=== PATIENT | female | born 1950 | race Caucasian/White ===

== ENCOUNTER 2017-07-14 15:50 | Emergency (ER) | payer MEDICARE, OTHER ==
[~2017-07-14] VITALS: Ht 157.5 cm; Wt 99.8 kg
[~2017-07-14 15:50] MED LIST: ACETAMINOPHEN325 M1 PO; ACETAMINOPHEN325 MG RC; ACETAMINOPHEN650 M1 PO; ACIDOPHILUS1 EACH PO; ADVIL PM CAPLE1 EACH PO; ALBUTEROL0.63 MG/3 NEB; ALPRAZOLAM0.25 MG PO; ALPRAZOLAM1 MG PO; ARANESP60 MCG/1 M SC; ASPIR 8181 MG PO; BACLOFEN10 MG PO; BENADRYL25 M1 PO; BENADRYL25 MG PO; BREO INH; BUSPIRONE HCL15 MG PO; BUSPIRONE HCL5 MG PO; CELEXA20 MG PO; CIPRO500 MG PO; CITALOPRAM HBR20 MG PO; CLEOCIN HCL150 MG PO; CLINDAMYCIN HC150 MG IV; CYCLOBENZAPRINE5 MG PO; CYMBALTA20 MG PO; DILT-CD120 MG PO; DOCUSATE SODIU100 MG PO; DOLOPHINE HCL5 MG PO; DUONEB 0.5 MG-33 ML INH; ETHYL CHLORI103.5 ML; FUROSEMIDE20 MG PO; FUROSEMIDE80 MG PO; GABAPENTIN300 MG PO; GEODON20 M1 IM; GEODON20 MG PO; HUMALOG100 UNITS/; HYDRALAZINE HCL10 MG PO; HYDROCHLOROTHIA25 MG PO; HYDROXYZINE HCL25 MG PO; IMIPRAMINE HCL25 MG PO; LAMOTRIGINE100 MG PO; LEXAPRO10 MG PO; LISINOPRIL20 MG PO; MECLIZINE HCL12.5 MG PO; MECLIZINE HCL25 MG PO; METHADONE HCL10 MG PO; METHYLIN5 M1 PO; METHYLPHENIDATE5 MG PO; METOLAZONE5 MG PO; METOPROLOL TART50 MG PO; MICROZIDE12.5 MG PO; MORPHINE S30 MG/30 M IVP; NORCO 5-325 TA1 EACH PO; NORVASC10 MG PO; NYSTATIN1 EAC1 TOP; NYSTATIN100000 UNI; ONDANSETRON HCL4 MG PO; ONDANSETRON2 MG/1 ML IV; OS-CAL 500+D T1 EACH PO; PAXIL40 MG PO; PHENERGAN25 MG/1 M1 IM; PHENYTOIN125 MG/5 M PO; PIPERACIL-TAZ2.25 G1; POTASSIUM CHLOR8 MEQ PO; PRAVACHOL20 MG PO; PRAVACHOL40 MG PO; PRAVASTATIN SOD40 MG PO; PRILOSEC20 MG PO; REGLAN10 MG PO; REGLAN5 MG PO; RENA-VITE TABL0.8 MG PO; RENVELA800 MG PO; ROCEPHIN1 GM IV; SIMVASTATIN20 MG PO; TOFRANIL25 MG PO; TYLENOL325 MG PO; ULTRAM 50MG50 MG PO; ULTRAM50 MG PO; VANCOMYCIN HCL1 GM IV; VICODIN ES TAB1 EACH PO; XANAX0.5 MG PO; Z.0.AMARYL2 MG PO; Z.0.AMBIEN CR12.5 MG PO; Z.0.GABAPENTIN100 MG PO; Z.0.XANAX0.25 MG PO; ZOFRAN ODT4 MG PO; ZOFRAN4 MG PO; ZOLPIDEM TART12.5 MG; [UNRECOGNIZED DRUG - OTHER] PO; [UNRECOGNIZED DRUG - OTHER] PO; [UNRECOGNIZED DRUG - OTHER] PO
[2017-07-14] MEDS ORDERED: HYDROMORPHONE 2MG/ML INJ IM ONE (17:15)
[2017-07-14 17:42] LABS: BASOPHILS % 0.3 % (0.0-1.0); EOSINOPHILS # (AUTO) 0.3 (0.0-0.4); EOSINOPHILS % 3.4 % (0.0-6.0); HEMATOCRIT 31.7 % (34.2-44.1); HEMOGLOBIN 9.9 g/dL (12.0-16.0); LYMPHOCYTES # (AUTO) 0.9 (1.0-3.2); LYMPHOCYTES % 9.8 % (18.0-39.1); MEAN CORPUSCULAR HEMOGLOBIN 29.3 pg (28-32); MEAN CORPUSCULAR HGB CONC 31.2 g/dL (31-35); MEAN CORPUSCULAR VOLUME 93.8 fL (81-99); MONOCYTES # (AUTO) 0.6 (0.2-0.8); MONOCYTES % 6.7 % (4.4-11.3); NEUTROPHILS # (AUTO) 7.3 (2.1-6.9); NEUTROPHILS % 79.1 % (38.7-80.0); PLATELET COUNT 201 x10e3/uL (140-360); RED BLOOD COUNT 3.38 x10e6/uL (3.6-5.1)
[2017-07-14 17:52] LABS: INR 0.92; PARTIAL THROMBOPLASTIN TIME 36.5 seconds (23.8-35.5); PROTHROMBIN TIME 12.8 seconds (11.9-14.5)
[2017-07-14 18:01] LABS: ALBUMIN 3.2 g/dL (3.5-5.0); ALBUMIN/GLOBULIN RATIO 0.7 (0.8-2.0); ANION GAP 18.4 mmol/L (8-16); CALCIUM 9.1 mg/dL (8.4-10.2); CREATININE, SERUM 3.16 mg/dL (0.57-1.11); POTASSIUM 4.4 mmol/L (3.5-5.1)
[2017-07-14 18:03] LABS: CREATINE KINASE MB 2.6 ng/mL (0.00-5.00); TROPONIN I 0.017 ng/mL (0-0.300)
--- NOTE | 2017-07-14 18:25 | Diagnostic Imaging Report ---
PROCEDURE:X-RAY PELVIS, AP VIEW COMPARISON:Lumbar spine x-rays 12/15/16 INDICATIONS:FALL FINDINGS: The bones are diffusely demineralized. Intramedullary gudelia and pin in the proximal right femur transfix an intertrochanteric fracture to near-anatomic alignment. There is some callus formation surrounding the fracture margins suggestive of healing. The visualized portion of the hardware is intact. No femoral head dislocation. A fracture of the right superior pubic ramus is suspected. There is no surrounding callus formation. There is no diastases the pubic symphysis or sacroiliac joints. A treated compression fracture of L3 is stable. Visualized portion of the left hip is unremarkable. CONCLUSION: ORIF of right femur fracture. Suspected acute fracture of the right pubic symphysis. This may be acute or chronic. Stable treated compression fracture of L3. Dictated by: Narendra Johnston M.D. on 07/14/2017 at 18:33 Electronically approved by: Narendra Johnston M.D. on 07/14/2017 at 18:33
--- NOTE | 2017-07-14 18:27 | Diagnostic Imaging Report ---
PROCEDURE:FEMUR ONE VIEW LEFT COMPARISON:Pelvis x-rays performed at the same time. INDICATIONS:FALL FINDINGS: Single AP view obtained. The entire femur was not imaged. The bones are diffusely demineralized. No fracture dislocation on this single image. There are no vascular calcifications. IMPRESSION: No fracture or dislocation on this single image. Dictated by: Narendra Johnston M.D. on 07/14/2017 at 18:35 Electronically approved by: Narendra Johnston M.D. on 07/14/2017 at 18:35
--- NOTE | 2017-07-14 18:34 | Diagnostic Imaging Report ---
PROCEDURE:X-RAY LEFT LOWER LEG COMPARISON:Knee x-rays 04/02/16. INDICATIONS:FALL FINDINGS: The bones are diffuse demineralized. There are two bone fragments adjacent to the lateral femoral condyle. The largest is well-corticated and measures 16 cm in length. There appears to be a donor site from the femoral condyle. The margins are somewhat well-corticated suggestive of chronicity. The remainder of the distal femur is intact. The tibia and fibula are intact. The visualized portions of the calcaneus and talus are intact. The subtalar joint is patent. There are mild degenerative changes of the medial, lateral, and patella femoral compartments. The patella is normally situated. There is no joint effusion. There is soft tissue swelling of the proximal lower extremity. A soft tissue nodule anterior to the proximal tibial metaphysis measures 4.8 x 8.0 cm. No radiopaque foreign bodies in the soft tissues. CONCLUSION: 1. Avulsion fracture from the lateral femoral condyle appears chronic. Please correlate with area of pain. 2. No acute fracture or dislocation. 3. Tricompartment osteoarthritis. 4. Soft tissue mass, likely a hematoma, in the anterior proximal lower extremity. Dictated by: Narendra Johnston M.D. on 07/14/2017 at 18:42 Electronically approved by: Narendra Johnston M.D. on 07/14/2017 at 18:42
[2017-07-14] MEDS ORDERED: HYDROMORPHONE 2MG/ML INJ IV ONE ×3 (18:45→22:15)
== END 2017-07-14 23:00 | disposition home or self-care (01) ==
LOC: ER 15:50
DX: M79.605 Pain in left leg (principal); M79.604 Pain in right leg; M25.462 Effusion, left knee; S80.02XA Contusion of left knee, initial encounter; S80.12XA Contusion of left lower leg, initial encounter; S32.501A Unspecified fracture of right pubis, initial encounter for closed fracture; I12.0 Hypertensive chronic kidney disease with stage 5 chronic kidney disease or end stage renal disease; N18.6 End stage renal disease; Z99.2 Dependence on renal dialysis; I48.91 Unspecified atrial fibrillation; I50.9 Heart failure, unspecified; F17.210 Nicotine dependence, cigarettes, uncomplicated
CPT/HCPCS: 29530; 36415; 72170; 73551; 73590; 80053; 82550; 82553; 83880; 84484; 85025; 85610; 85730; 86850; 86900; 99284; J1170

== ENCOUNTER 2018-05-04 19:00 | Emergency (ER) | payer MEDICARE ==
[~2018-05-04] VITALS: Ht 170.2 cm; Wt 73.9 kg
[~2018-05-04 19:00] MED LIST changes: +FUROSEMIDE40 MG PO; +PANTOPRAZOLE SO40 MG PO; +RENAGEL800 MG PO; +SERTRALINE HCL50 MG PO
--- OUTSIDE RECORDS SUMMARY | 2018-05-04 19:03 | XMS REPORT | Clinical Summary ---
Author Author PHILOMENA [facility] Address Unknown Phone Unavailable Care Team Providers Care Quill Winder Name Role Phone PCP Unavailable Allergies Comments Active Allergy Reactions Severity Noted Date Codeine Swelling 04/02/2016 Medications End Date Status Medication Sig Dispensed Refills Start Date Active albuterol (PROVENTIL) 2.5 0 mg /3 mL (0.083 %) 6 nebulizer solution Active ALPRAZolam (XANAX XR) 0.5 0 MG 24 hr tablet 6 Active amLODIPine (NORVASC) 10 0 MG tablet 6 Active busPIRone (BUSPAR) 15 MG 0 tablet 6 Active citalopram (CELEXA) 20 MG 0 tablet 6 Active ethyl chloride 100 % 0 spray 6 Active furosemide (LASIX) 80 MG 0 tablet 6 Active gabapentin (NEURONTIN) 0 600 MG tablet 6 Active dicyclomine (BENTYL) 10 0 MG capsule 6 Active methadone (DOLOPHINE) 10 0 MG tablet 6 Active lidocaine-prilocaine 0 (EMLA) 2.5-2.5 % cream 6 Active metolazone (ZAROXOLYN) 5 0 MG tablet 6 Active metoprolol (LOPRESSOR) 50 0 MG tablet 6 Active pantoprazole (PROTONIX) 0 40 MG tablet 6 Active PARoxetine (PAXIL) 40 MG 0 tablet 6 Active GAVILYTE-G 236-22.74-6.74 0 -5.86 gram solution 6 Active RENVELA 800 mg tablet 0 6 Active traMADol (ULTRAM) 50 mg Take 1 tablet 30 tablet 0 tablet (50 mg total) 6 by mouth every 6 (six) hours as needed for Pain. Max Daily Amount: 200 mg Active Problems Problem Noted Date Leg hematoma 04/03/2016 Leg hematoma, left, initial encounter 04/02/2016 COPD (chronic obstructive pulmonary disease) 04/02/2016 Overview: intermittent home O2 CHF (congestive heart failure) 04/02/2016 ESRD (end stage renal disease) 04/02/2016 Overview: M,W,F Social History Date Tobacco Use Types Packs/Day Years Used Light Tobacco Smoker Cigarettes 0.25 50 Sex Assigned at Date Recorded Not on file Industry Job Start Date Occupation Not on file Not on file Not on file Travel End Travel History Travel Start No recent travel history available. Last Filed Vital Signs Not on file Plan of Treatment Not on file Implants Device Identifier Shelf Expiration Date Model / Serial / Lot Implanted Type Area Manufactur er 12/31/2017 [id number] / [id number] / [id number] Grft Taurus Mrtrstm 1000mg [id number] - Tissue Left: Leg [employer] [id number] Graft/Subs Implanted: Qty: 1 on 04/12/2016 by Sreekanth De La O MD 12/31/2017 [id number] / [id number] / [id number] Grft Taurus Mrtrstm 1000mg [id number] - Tissue Left: Leg [employer] [id number] Graft/Subs Implanted: Qty: 1 on 04/12/2016 by Sreekanth De La O MD 10/01/2017 [id number] / [id number] / [id number] Drsng Matristem Meshed [id number] Tissue Left: Leg [employer] [id number] - [id number] Graft/Subs Implanted: Qty: 1 on 04/12/2016 by Sreekanth De La O MD Results Not on fileafter 05/03/2017 Insurance Payer Benefit Subscriber ID Type Phone Address Plan / Group MEDICARE MEDICARE A xxxxxxxxxx Medicare B [facility] [place] xxxxxxxxx [facility] Advance Directives For more information, please contact: [facility] [address] [place] [address] Date Inactivated Comments Code Status Date Activated 04/13/2016 7:49 PM Full Code 04/03/2016 12:26 PM This code status was determined by: Patient 04/03/2016 12:26 PM Full Code 04/03/2016 12:34 AM This code status was determined by: Patient
--- OUTSIDE RECORDS SUMMARY | 2018-05-04 19:03 | XMS REPORT | Continuity of Care Document ---
Author Author [facility] Address Unknown Phone Unavailable Problems Problem Status Onset Date Classification Date Reported Comments Source WEDGE COMPRESSION FRACTURE LUMBAR VERTEB Active 09/17/2016 [facility] Chronic headaches Resolved Problem 09/26/2016 [facility] Obesity Active Problem 09/26/2016 [facility] WEDGE COMPRESSION FRACTURE OF UNSP LUMBA Active [facility] Medications Medication Details Route Status Patient Instructions Ordering Provider Order Date Source Allergies, Adverse Reactions, Alerts Substance Category Reaction Severity Reaction type Status Date Reported Comments Source Adhesive Tape Assertion Tears skin <not entered> Drug allergy Active [facility] codeine Assertion 35 years ago it made my lips swell, itching <not entered> Drug allergy Active [facility] Immunizations Immunization Date Given Site Status Last Updated Comments Source Results Order Name Results Value Reference Range Date Interpretation Comments Source Spine lumbar wo contrast CT Spine lumbar wo contrast CT Spine lumbar wo contrast CT CLINICAL HX: CHECK UP FOR COMPRESSION FX. - CT DLP: 751 MGY-CM; COMPARISON: Lumbar spine series 08/16/2007 TECHNIQUE: Contiguous transaxial 2.5 mm images were obtained through the lumbar spine. Images were reformatted in sagittal and coronal projections. FINDINGS: BONES: There is extensive generalized osteopenia limiting the overall evaluation. There is mild compression deformity of the superior aspect of T11 vertebral body suggesting a subacute to chronic fracture. Probable old compression deformity L1 level with decrease in vertebral body height anteriorly by approximately 70%. Moderate compression deformity of L3 vertebral body stabilized by bony cement. Mild relatively uniform loss of vertebral body height at L4 level. Moderate loss of vertebral body height at L5 level. Acuity versus chronicity of these fractures is difficult to assess. DISC SPACES: There is vacuum phenomenon in the disc spaces at T12-L1 level, L3- L4, L4-L5 and L5-S1 levels. Combination of diffuse disc bulge, spondylosis and ligamentous hypertrophy and facet arthrosis results in moderate central canal stenosis at L3-L4 and moderate to severe central canal stenosis at L4-L5 level. Mild central canal stenosis is present at L2-L3 and L5-S1 levels. There is mild to moderate foraminal stenosis throughout the mid to lower lumbar spine. SOFT TISSUES: Probable renal cyst, upper pole of left kidney. Extensive atherosclerotic disease is present in the abdominal aorta and proximal iliacs. No evidence for AAA. IMPRESSION: Multiple compression deformities are present in the lower thoracic and throughout the lumbar region as discussed above. Decrease in vertebral body height is most pronounced at L1 level. Possible subacute fracture at T11 vertebral body. However, acuity versus chronicity of these fractures is difficult to definitively assess without any prior more recent imaging available for comparison. Further evaluation either with bone scan or MRI of lumbar spine is recommended. Degenerative disc disease, facet arthrosis, and ligamentous hypertrophy is present in the mid to lower lumbar spine resulting in moderate central canal stenosis at L3-L4 level and moderate to severe central canal stenosis at L4-L5 level. This can also be evaluated in greater detail on the MRI study. SL: [id number] 09/23/2016 - - Read by: Bear Lambert MD Dictated Date/time: 09/23/16 16:29 Electronically Signed by: Bear Lambert MD 09/23/16 16:46 FINAL REPORT [facility] Vital Signs Vital Sign Value Date Comments Source Encounters Location Location Details Encounter Type Encounter Number Reason For Visit Attending Provider ADM Date DC Date Status Source Outpatient [id number] [facility] 08/31/2016 Active [facility] Outpatient [id number] [facility] 09/14/2016 Active [facility] Outpatient [id number] [facility] 09/23/2016 09/24/2016 [facility] Procedures Procedure Code Date Perfomer Comments Source Excision of gallbladder [id number] [facility] Knee joint operation [id number] [facility]
--- NOTE | 2018-05-04 20:27 | Diagnostic Imaging Report ---
Examination: CT head without contrast Clinical Indication: Head injury. Technique: Transaxial noncontrast images from the skull base through the vertex were obtained. Sagittal and coronal reformatted images were done. Dose modulation, iterative reconstruction, and/or weight based adjustment of the mA/kV was utilized to reduce the radiation dose to as low as reasonably achievable. Comparison: 12/15/[address] Findings: Scalp: No abnormalities. Bones: Intact. No fractures. No blastic or lytic lesions. Brain sulci: Appropriate for patient's age. Ventricles: Normal in size and configuration. No hydrocephalus. . Extra-axial space: No abnormalities. Parenchyma: Again demonstrated are mild confluent areas of hypoattenuation in the periventricular and subcortical and pontine white matter, nonspecific. No masses, hemorrhage, or acute or chronic cortical based vascular insults. Suprasellar region: No abnormalities. Craniocervical junction: The foramen magnum is patent. No Chiari one malformation. Incidental findings: Atherosclerotic calcification of the cavernous and supraclinoid internal carotid arteries. Impression: 1. No new or acute intracranial finding when compared to prior head CT dated 12/15/2016. 2. Unchanged mild chronic microvascular ischemic change. Signed by: Dr. Letty Lozano M.D. on 05/04/2018 8:23 PM
--- NOTE | 2018-05-04 20:30 | Diagnostic Imaging Report ---
Examination: CT CERVICAL SPINE WITHOUT CONTRAST HISTORY:Neck pain and injury after fall. COMPARISON:None. TECHNIQUE: Multidetector helical axial images were obtained without contrast from the foramen magnum to T1. Coronal and sagittal reformatted images were done. Bone and soft tissue windows were evaluated. Dose modulation, iterative reconstruction, and/or weight based adjustment of the mA/kV was utilized to reduce the radiation dose to as low as reasonably achievable. FINDINGS: Alignment:Normal alignment and lordosis. Vertebrae: Normal height with decrease bone mineralization. No acute fracture, infection or neoplasm. Disc space heights: Normal height. Caliber of spinal canal: Developmentally normal. Posterior fossa and craniocervical junction: Foramen magnum patent. No Chiari 1 malformation. Soft tissues: Atherosclerotic calcification of the bilateral carotid bifurcations. Degenerative changes: Mild bilateral facet arthropathy of the C5-C6 and C6-C7 levels. No disc bulge/ herniation or foraminal or canal stenosis. IMPRESSION: No acute abnormalities. Signed by: Dr. Letty Lozano M.D. on 05/04/2018 8:27 PM
--- NOTE | 2018-05-04 20:33 | Diagnostic Imaging Report ---
Examination: Single AP view of the chest. COMPARISON: AP chest 12/14/2017 INDICATION: Status post fall DISCUSSION: Lines/tubes: None. Lungs: The lungs are well inflated. Stable 1.0 cm calcified granuloma projecting in the right costophrenic region. Stable mild prominence of the interstitial markings bilaterally. There is no evidence of consolidation or pulmonary edema. Pleura: There is no pleural effusion or pneumothorax. Heart and mediastinum: Stable enlargement of the cardiac silhouette. Pulmonary vasculature is normal. Bones and soft tissues: Acute, mildly displaced fracture of the distal right clavicular diaphysis, with inferior displacement of the distal fracture fragment. Generalized osteopenia. Degenerative changes in the thoracic spine. IMPRESSION: 1. Acute, mildly displaced fracture of the distal right clavicular diaphysis, with inferior displacement of the distal fracture fragment. Signed by: Dr. Sean Cardenas M.D. on 05/04/2018 8:30 PM
[2018-05-04] MEDS ORDERED: ALBUTEROL/IPRATROPIUM 3 ML NEB NEB STA (20:34)
--- NOTE | 2018-05-04 20:35 | Diagnostic Imaging Report ---
EXAMINATION: Right shoulder series. CLINICAL HISTORY: Status post fall/trauma. COMPARISON: Chest 1 view 02/13/2018. Discussion: Generalized osteopenia. Acute, mildly displaced fracture of the right clavicular distal diaphysis, with inferior displacement of the distal fracture fragment. No osteolytic or osteoblastic lesions. There is no evidence of a.c. separation. The glenohumeral joint is grossly unremarkable. The soft tissues are normal. IMPRESSION: 1. Acute, mildly displaced fracture of the right clavicular distal diaphysis, with inferior displacement of the distal fracture fragment. Signed by: Dr. Sean Cardenas M.D. on 05/04/2018 8:31 PM
[2018-05-04] MEDS ORDERED: ULTRAM50 MG PO (21:25)
[2018-05-04 23:14] VITALS: BP 160/118
[2018-05-05] MEDS ORDERED: LIDOCAINE 5% PATCH TP SCH (09:00)
== END 2018-05-04 23:39 | disposition home or self-care (01) ==
LOC: ER 19:00
DX: S42.031A Displaced fracture of lateral end of right clavicle, initial encounter for closed fracture (principal); W01.0XXA Fall on same level from slipping, tripping and stumbling without subsequent striking against object, initial encounter; Y93.01 Activity, walking, marching and hiking; Y92.019 Unspecified place in single-family (private) house as the place of occurrence of the external cause; Z88.5 Allergy status to narcotic agent; F17.210 Nicotine dependence, cigarettes, uncomplicated
CPT/HCPCS: 70450; 71045; 72125; 94640; 99283

== ENCOUNTER 2018-06-23 10:55 | Observation (INO) | payer MEDICARE ==
[~2018-06-23] VITALS: Ht 170.2 cm; Wt 78.5 kg
--- OUTSIDE RECORDS SUMMARY | 2018-06-23 10:58 | XMS REPORT | Clinical Summary ---
Author Author PHILOMENA [facility] Address Unknown Phone Unavailable Care Team Providers Care Pneumatic Drum Sander Name Role Phone PCP Unavailable Allergies Comments [...] Lot Implanted Type Area Manufactur er 12/31/2017 [id number] / [id number] / [id number] Grft Taurus Mrtrstm 1000mg [id number] - Tissue Left: Leg [employer] [id number] Graft/Subs Implanted: Qty: 1 on 04/12/2016 by Sreekanth De La O MD 12/31/2017 [id number] / [id number] / [id number] Grft Taurus Mrtrstm 1000mg [id number] - Tissue Left: Leg [employer] [id number] Graft/Subs Implanted: Qty: 1 on 04/12/2016 by Sreekanth De La O MD 10/01/2017 [id number] / [id number] / [id number] Drsng Matristem Meshed [id number] Tissue Left: Leg [employer] [id number] - [id number] Graft/Subs Implanted: Qty: 1 on 04/12/2016 by Sreekanth De La O MD Results Not on fileafter 06/22/2017 Insurance Payer Benefit Subscriber ID Type Phone Address Plan / Group MEDICARE MEDICARE A xxxxxxxxxx Medicare B [facility] [place] xxxxxxxxx [facility] Advance Directives For more information, please contact: [facility] [address] [place] [address] Date Inactivated Comments Code Status Date Activated 04/13/2016 7:49 PM Full Code 04/03/2016 12:26 PM This code status was determined by: Patient 04/03/2016 12:26 PM Full Code 04/03/2016 12:34 AM This code status was determined by: Patient
[2018-06-23] MEDS ORDERED: ALBUTEROL SULF 0.083% NEB SOLN 3 ML NEB NEB STA (11:34)
[2018-06-23] MEDS ORDERED: IPRATROPIUM BROMIDE 0.02% 2.5 ML NEB NEB STA (11:34)
[2018-06-23 11:59] LABS: BASOPHILS % 0.6 % (0.0-1.0); EOSINOPHILS % 0.6 % (0.0-6.0); HEMATOCRIT 34.4 % (34.2-44.1); HEMOGLOBIN 11.4 g/dL (12.0-16.0); LYMPHOCYTES # (AUTO) 0.5 (1.0-3.2); LYMPHOCYTES % 9.4 % (18.0-39.1); MEAN CORPUSCULAR HEMOGLOBIN 31.6 pg (28-32); MEAN CORPUSCULAR HGB CONC 33.1 g/dL (31-35); MEAN CORPUSCULAR VOLUME 95.3 fL (81-99); MONOCYTES # (AUTO) 0.5 (0.2-0.8); MONOCYTES % 8.3 % (4.4-11.3); NEUTROPHILS # (AUTO) 4.4 (2.1-6.9); NEUTROPHILS % 80.7 % (38.7-80.0); PLATELET COUNT 112 x10e3/uL (140-360); RED BLOOD COUNT 3.61 x10e6/uL (3.6-5.1); RED CELL DISTRIBUTION WIDTH 13.4 % (11.7-14.4)
[2018-06-23] MEDS ORDERED: AZITHROMYCIN 500MG/NS 250 ML 250 ML IV ONE (12:00)
[2018-06-23 12:03] LABS: INR 0.95; PROTHROMBIN TIME 13.6 seconds (11.9-14.5)
[2018-06-23 12:04] LABS: PARTIAL THROMBOPLASTIN TIME 38.5 seconds (23.8-35.5)
[2018-06-23 12:13] LABS: ALBUMIN 3.4 g/dL (3.5-5.0); ALBUMIN/GLOBULIN RATIO 0.9 (0.8-2.0); ANION GAP 17.1 mmol/L (8-16); CALCIUM 8.9 mg/dL (8.4-10.2); CREATININE, SERUM 3.95 mg/dL (0.57-1.11); MAGNESIUM 2.1 MG/DL (1.3-2.1); POTASSIUM 5.1 mmol/L (3.5-5.1)
[2018-06-23 12:19] LABS: CREATINE KINASE MB 5.2 ng/mL (0-5.0)
[2018-06-23 12:27] LABS: B-TYPE NATRIURETIC PEPTIDE2 220.3 pg/mL (0-100)
[2018-06-23] MEDS ORDERED: CEFTRIAXONE SOD 1 GM VIAL IM ONE (12:30)
--- NOTE | 2018-06-23 12:36 | Diagnostic Imaging Report ---
EXAMINATION: CHEST 2 VIEWS INDICATION: ^ORDER PLACED BY ^[id number] ^1220 ^Y COMPARISON: 05/04/2018 FINDINGS: PA and lateral views TUBES and LINES: None. LUNGS: Limited by body habitus. Central vascular congestion and suspected mild interstitial edema. Unchanged right basilar nodular density. PLEURA: No pleural effusion or pneumothorax. HEART AND MEDIASTINUM: The cardiac silhouette is enlarged. BONES AND SOFT TISSUES: No acute osseous lesion. Multilevel degenerative changes of thoracic spine with exaggerated kyphosis and generalized demineralization. Soft tissues are unremarkable. UPPER ABDOMEN: No free air under the diaphragm. IMPRESSION: Central vascular congestion and suspected mild interstitial edema. Stable right basilar nodular density, likely a calcified granuloma. Signed by: Dr. Mckay Valentin MD on 06/23/2018 12:33 PM
[2018-06-23 12:55] LABS: CLARITY,URINE CLEAR (CLEAR); COLOR,URINE YELLOW (YELLOW)
[2018-06-23 12:56] LABS: BACTERIA,URINE RARE /HPF; BILIRUBIN,URINE NEGATIVE (NEGATIVE); EPITHELIAL CELLS,URINE RARE /LPF; KETONES,URINE NEGATIVE (NEGATIVE); LEUKOCYTE ESTERASE ,URINE NEGATIVE (NEGATIVE); NITRITE,URINE NEGATIVE (NEGATIVE); PROTEIN,URINE DIPSTICK NEGATIVE (NEGATIVE); URINE UROBILINOGEN 0.2 mg/dL (0.2 - 1)
[2018-06-23] MEDS ORDERED: CEFTRIAXONE SOD 1 GM/NS 50 ML 50 ML IV ONE (13:00)
[2018-06-23] MEDS ORDERED: CEFTRIAXONE SOD 1 GM VIAL IV ONE (13:00)
[2018-06-23] MEDS ORDERED: ONDANSETRON HCL INJ 2 MG/ML VIAL IV STA (13:12)
[2018-06-23] MEDS ORDERED: SODIUM CHLORIDE FLUSH 10 ML SYR INJ PRN (14:15)
[2018-06-23] MEDS ORDERED: METHYLPREDNISOLONE SOD SUCC 125 MG/2ML VIAL IV NR (14:30)
--- OUTSIDE RECORDS SUMMARY | 2018-06-23 15:10 | XMS REPORT | Clinical Summary ---
Author Author PHILOMENA [facility] Address Unknown Phone Unavailable Care Team Providers Care Gas Or Water Meter Installer Name Role Phone PCP Unavailable Allergies Comments [...] Lot Implanted Type Area Manufactur er 12/31/2017 [id number] / [id number] / [id number] Grft Taurus Mrtrstm 1000mg [id number] - Tissue Left: Leg [employer] [id number] Graft/Subs Implanted: Qty: 1 on 04/12/2016 by Sreekanth De La O MD 12/31/2017 [id number] / [id number] / [id number] Grft Taurus Mrtrstm 1000mg [id number] - Tissue Left: Leg [employer] [id number] Graft/Subs Implanted: Qty: 1 on 04/12/2016 by Sreekanth De La O MD 10/01/2017 [id number] / [id number] / [id number] Drsng Matristem Meshed [id number] Tissue Left: Leg [employer] [id number] - [id number] Graft/Subs Implanted: Qty: 1 on 04/12/2016 by Sreekanth De La O MD Results Not on fileafter 06/22/2017 Insurance Payer Benefit Subscriber ID Type Phone Address Plan / Group MEDICARE MEDICARE A xxxxxxxxxx Medicare B [facility] [place] xxxxxxxxx [facility] Advance Directives For more information, please contact: [facility] [address] [place] [address] Date Inactivated Comments Code Status Date Activated 04/13/2016 7:49 PM Full Code 04/03/2016 12:26 PM This code status was determined by: Patient 04/03/2016 12:26 PM Full Code 04/03/2016 12:34 AM This code status was determined by: Patient
[2018-06-23] MEDS: CEFTRIAXONE SOD 1 GM/NS 50 ML 50 ML IV SCH (16:25)
--- NOTE | 2018-06-23 17:35 | NUR ---
ARRIVED VIA STRETCHER FROM ER, TRANSFERRED TO BED WITH ASSIST, AA&oX3, 2L NC, DIALYSIS NURSE IN ROOM, CONSENT COMPLETED, ORIENTED TO ROOM AND CALL LIGHT SYSTEM, CALL LIGHT WITHIN REACH
[2018-06-23] MEDS ORDERED: SODIUM CHLORIDE 0.9% 1000ML 0 ML ONE (17:47)
--- NOTE | 2018-06-23 18:25 | NUR ---
MD AMADOR INTO SEE PT, DISCUSSED POC
--- NOTE | 2018-06-23 19:19 | NUR ---
WALKING ROUNDS PERFORMED, RECEIVED PT LAYING SEMI FOWLERS IN BED, AAOX3, RR EVEN WITH AUDIBLE WHEEZING NOTED, PT RECEIVING DIALYSIS AT THIS TIME TO (R) UPPER ARM FISTULA. LEFT PT LAYING SEMI FOWLERS IN BED, BED IN LOW LOCKED POSITION, SIDE RAILS UPX2, CALL LIGHT AND PHONE WITHIN REACH.
[2018-06-23 20:00] VITALS: BP 113/59
--- NOTE | 2018-06-23 20:15 | Consultation ---
DATE OF CONSULTATION: June 23, 2018 HISTORY OF PRESENT ILLNESS: Ms. Julia Astudillo is known to me, 68-year-old female, who developed cough along with phlegm production and shortness of breath. About 3 days ago, she missed her dialysis. Cough became worse today, so she decided to come to the emergency room and did not go to the dialysis center. She is scheduled for dialysis today. Currently, awake, alert, in no apparent distress. Her respiratory rate is at baseline. She has got underlying history of COPD. She has got a history of tobacco addiction and she still has not quit smoking. Chest x-ray shows central vascular congestion, suspected mild interstitial edema and calcified granuloma. Please see official report. Other laboratory test shows white count 5.4, hemoglobin 11.4, potassium 5.1 with a creatinine 3.95. Troponin 0.008. BNP 220. ALLERGIES: TO CODEINE. CURRENT MEDICATIONS: Patient is on azithromycin, ceftriaxone, albuterol/Atrovent nebulizers, received 1 dose of methylprednisolone, currently on methyl prednisone 60 mg IV q.8, ondansetron p.r.n. For dose scheduled, please see MAR. PAST HISTORY: End-stage renal disease, COPD, congestive heart failure, hypertension, tobacco addiction. PHYSICAL EXAMINATION GENERAL: Awake, alert, lying supine. Audible wheeze noted. Mild respiratory distress. No dyspnea. VITALS: Blood pressure 101/62, pulse rate 83. She is on 2 liters nasal cannula 100% of oxygenation. Respiratory rate is 18. HEAD AND NECK: Cornea clear. Mucosa moist. Neck veins not distended. LUNGS: Bilateral end-expiratory rhonchi bilaterally. No rales. HEART: S1 and S2 audible. No gallop. ABDOMEN: Otherwise, soft and nontender. EXTREMITIES: Lower extremity, no edema. IMPRESSION 1. Hyperkalemia. 2. End-stage renal disease. 3. Underlying chronic obstructive pulmonary disease exacerbation. 4. Possible pneumonia. 5. No overt evidence of congestive heart failure. PLAN: Plan on hemodialysis. Agree with choice of antibiotics as well as steroids, nebulizer treatments. We will place the patient on renal diet. Please see orders. Discussed with RN. Job#: [id number] JOSEPH
[2018-06-23 20:18] LABS: CREATINE KINASE 88 IU/L (29-168)
[2018-06-23] MEDS ORDERED: CEFTRIAXONE SOD 1 GM VIAL IV SCH (21:00)
[2018-06-23] MEDS: METHYLPREDNISOLONE SOD SUCC 125 MG/2ML VIAL IV SCH (22:20)
[2018-06-23 22:30] VITALS: BP 113/59
--- NOTE | 2018-06-23 22:30 | NUR ---
PT REPORTS DIAPER BEING WET, DIAPER REMOVED, RASH NOTED TO BILATERAL MEDIAL THIGHS AND UNDER LOWER ABDOMINAL FOLD. APPLIED MEDLINE REMEDY WITH OLIVAMINE ANTIFUNGAL CREAM TO RASH. 16F MURGUIA INSERTED UTILIZING STERILE TECHNIQUE. CHARGE NURSE Shaun VITAL RN AT BEDSIDE TO ASSIST. CLEAR PALE YELLOW URINE NOTED. SECURED MURGUIA TUBING TO PT (L) LEG. REPOSITIONED PT IN BED, CHANGED LILLY AT THIS TIME. LEFT PT LAYING SEMI FOWLERS IN BED, BED IN LOW LOCKED POSITION, SIDE RAILS UPX2, CALL LIGHT AND PHONE WITHIN REACH.
[2018-06-23] MEDS ORDERED: ZOFRAN4 MG PO (23:33)
[2018-06-23] MEDS ORDERED: RENAGEL800 MG PO (23:33)
[2018-06-24] VITALS (8 sets, daily range): BP systolic 131–151; BP diastolic 61–65
[2018-06-24] MEDS: CEFTRIAXONE SOD 1 GM/NS 50 ML 50 ML IV SCH ×2 (03:34→14:16)
--- NOTE | 2018-06-24 03:49 | NUR ---
PAGE PLACED FOR MD SANTIAGO CONCERNING PT REPORTS OF PAIN TO BILATERAL FEET. WAITING FOR CALLBACK.
[2018-06-24] MEDS: METHYLPREDNISOLONE SOD SUCC 125 MG/2ML VIAL IV SCH (05:41)
[2018-06-24] MEDS ORDERED: SEVELAMER CARBONATE 800 MG TAB PO PRN (05:45)
[2018-06-24] MEDS ORDERED: NYSTATIN 15 GM POWDER UD BTL TOP PRN (05:45)
--- NOTE | 2018-06-24 06:22 | Diagnostic Imaging Report ---
CHEST SINGLE (PORTABLE), 06/24/2018 7:00 AM Technique: CHEST SINGLE (PORTABLE) Comparison: Previous day Clinical history: Shortness of breath Findings: See Impression. Note the patient's chin overlies the lung apices. Impression: 1. Stable cardiomediastinal silhouette. 2. Stable central vascular prominence. Linear left basilar atelectasis. 3. No overt edema or consolidation. 4. No effusion or pneumothorax. Signed by: Dr Nannette Lucero MD on 06/24/2018 6:18 AM
[2018-06-24] MEDS: TRAMADOL HCL 50 MG TAB PO PRN (06:30)
[2018-06-24 06:35] LABS: BASOPHILS % 0.2 % (0.0-1.0); HEMOGLOBIN 11.6 g/dL (12.0-16.0); LYMPHOCYTES # (AUTO) 0.3 (1.0-3.2); LYMPHOCYTES % 5.6 % (18.0-39.1); MEAN CORPUSCULAR HEMOGLOBIN 31.1 pg (28-32); MEAN CORPUSCULAR HGB CONC 32.2 g/dL (31-35); MEAN CORPUSCULAR VOLUME 96.5 fL (81-99); MONOCYTES # (AUTO) 0.1 (0.2-0.8); MONOCYTES % 1.9 % (4.4-11.3); NEUTROPHILS # (AUTO) 4.3 (2.1-6.9); NEUTROPHILS % 91.7 % (38.7-80.0); PLATELET COUNT 111 x10e3/uL (140-360); RED BLOOD COUNT 3.73 x10e6/uL (3.6-5.1); RED CELL DISTRIBUTION WIDTH 13.3 % (11.7-14.4)
[2018-06-24 06:57] LABS: ANION GAP 18.6 mmol/L (8-16); CALCIUM 9.1 mg/dL (8.4-10.2); CREATININE, SERUM 2.93 mg/dL (0.57-1.11); POTASSIUM 4.6 mmol/L (3.5-5.1)
[2018-06-24 06:58] LABS: CREATINE KINASE 52 IU/L (29-168)
--- NOTE | 2018-06-24 07:02 | Progress Note ---
DATE: CONSULTING FOR: Dr. Scott. SUBJECTIVE: Patient is here for end-stage renal disease, hyponatremia and also history of COPD with exacerbation. Currently, the patient is on azithromycin, Rocephin and Solu-Medrol for his COPD exacerbation, also hyponatremia. OBJECTIVE: VITAL SIGNS: She is currently afebrile. Temperature is 96.8, pulse of 84, respiration of 19, blood pressure is 131/62, and pulse oximetry 97% on 4 liters of nasal cannula. HEENT: Normocephalic, atraumatic. Patient has O2 support. CVS: S1, S2 distant. LUNGS: Positive for rhonchi bilaterally and positive end-inspiratory wheezes. ABDOMEN: Nontender, nondistended. SKIN: With intertrigo. EXTREMITIES: No clubbing. No cyanosis. No edema. Positive for vascular changes. LABORATORY VALUES: Yesterday's white count was 5.40, hemoglobin of 11.4, hematocrit of 34. Chemistry: Sodium of 128, potassium of 5.1. BUN of 42 and creatinine of 3.95. Troponins have been trending negative and BNP was 220. IMAGING STUDIES: Last chest x-ray from yesterday shows central vascular congestion, suspected mild interstitial edema and stable vascular nodular density. ASSESSMENT: Hyponatremia, hyperkaliemia, end-stage renal disease, chronic obstructive pulmonary disorder with acute exacerbation and pneumonia. PLAN: Continue with dialysis, sodium will be replaced slowly. Patient is on azithromycin and ceftriaxone at this time. We will restart her home medications, also on Solu-Medrol 60 mg IV q. 8 hours, we will choke it down to 60 mg twice a day. Patient's home medications will be reconciled. Patient will get some nystatin for intertrigo and continue with HD for end-stage renal disease. For further recommendations and clinical course, we will continue to monitor the patient. Electrolytes will be done on a daily basis. Plan is to keep him here for 1 to 2 days and will possibly discharge in 1 to 2 days depending on her progression. Job#: [id number] KYLIE
[2018-06-24 07:03] LABS: LYMPHOCYTES % (MANUAL) 6 % (19-48); MONOCYTES % (MANUAL) 2 % (3.4-9.0); NEUTROPHILS % (MANUAL) 92 % (40-74); PLATELET ESTIMATE SLIGHTLY DECREASED; PLATELET MORPHOLOGY COMMENT NORMAL; RBC MORPHOLOGY COMMENT NORMAL
[2018-06-24] MEDS ORDERED: SODIUM CHLORIDE 0.9% 250ML 250 ML ONE (08:57)
[2018-06-24] MEDS ORDERED: METOPROLOL TARTRATE 50 MG TAB PO SCH (09:00)
[2018-06-24] MEDS ORDERED: LAMOTRIGINE 100 MG TAB PO SCH (09:00)
[2018-06-24] MEDS ORDERED: METHADONE HCL 10 MG TAB PO SCH (09:00)
[2018-06-24] MEDS: NYSTATIN 15 GM POWDER UD BTL TOP SCH (09:00)
[2018-06-24] MEDS: SEVELAMER CARBONATE 800 MG TAB PO SCH ×3 (09:00→17:37)
[2018-06-24] MEDS: LAMOTRIGINE 25 MG TAB PO SCH ×3 (09:00→21:55)
[2018-06-24] MEDS: AZITHROMYCIN 500MG/NS 250 ML 250 ML IV SCH (09:00)
[2018-06-24] MEDS ORDERED: BUSPIRONE HCL 5 MG TAB PO SCH (09:00)
[2018-06-24] MEDS ORDERED: GABAPENTIN 300 MG CAP PO SCH (09:00)
[2018-06-24] MEDS: METHADONE HCL 10 MG TAB PO SCH ×3 (09:00→21:55)
[2018-06-24] MEDS: METHYLPREDNISOLONE SOD SUCC 40 MG/ML VIAL IV SCH ×2 (09:15→21:55)
[2018-06-24] MEDS: ALPRAZOLAM 0.5 MG TAB PO SCH ×3 (09:15→21:55)
[2018-06-24] MEDS: CITALOPRAM HYDROBROMIDE 20 MG TAB PO SCH (09:15)
[2018-06-24] MEDS: PANTOPRAZOLE SOD 40 MG TABEC PO SCH (09:15)
[2018-06-24] MEDS: BUSPIRONE HCL 5 MG TAB PO SCH ×2 (09:15→21:55)
[2018-06-24] MEDS: ASPIRIN 81 MG CHEW TAB PO SCH (09:15)
[2018-06-24] MEDS: METOPROLOL TARTRATE 50 MG TAB PO SCH ×2 (09:15→21:55)
[2018-06-24] MEDS ORDERED: GABAPENTIN100 MG PO (09:18)
[2018-06-24] MEDS ORDERED: GABAPENTIN 100 MG CAP ONE (09:23)
[2018-06-24] MEDS: GABAPENTIN 100 MG CAP PO SCH ×3 (09:30→21:55)
--- NOTE | 2018-06-24 11:10 | NUR ---
WITH STANDBY ASSIST, PT OOB TO BS COMMODE, CALL LIGHT PLACED WITHIN REACH
[2018-06-24] MEDS: ONDANSETRON HCL INJ 2 MG/ML VIAL IV PRN (11:11)
--- NOTE | 2018-06-24 14:29 | NUR ---
CASE MANAGEMENT INITIAL ASSESSMENT Security Project Manager to bedside to discuss plan of care with patient/family. CM/SW role and care transitions discussed. Anticipated discharge plan discussed along with duration of care. CM/SW discussed patients right to make decisions in care. CM/SW work hours given. Patient lives: IN [place] WITH SON AND FAMILY Admit/Transfer: VIA ED FROM HOME POA/Emergency contact: BERTA KIRKPATRICK [phone] Current/Previous Home Health: [facility] 4 TO 5 DAYS A WEEK PCP/Follow-up Care: JACK Current/Previous DME: [facility] Other Services: [facility] Employment Status: RETIRED Areas of Concerns: NONE Referral Needs: NONE Education Needs: NONE IMM/BACON given and signed (if applicable): BACON Goal for discharge: RETURN HOME INDEPENDENTLY CM/SW left business card at the bedside with contact information. Name and number was also written on the patients whiteboard. Patient verbalized understanding of discussion. CM will follow-up with ongoing discharge and transition of care needs.
--- NOTE | 2018-06-24 19:00 | NUR ---
WALKING ROUNDS PERFORMED, RECEIVED PT LAYING SEMI FOWLERS IN BED, AAOX3, RR EVEN AND NON-LABORED, O2 BY NC AT 4L. NO S/SX OF DISTRESS NOTED. LEFT PT LAYING SEMI FOWLERS IN BED, BED IN LOW LOCKED POSITION, SIDE RAILS UPX2, CALL LIGHT AND PHONE WITHIN REACH.
[2018-06-24] MEDS: ALBUTEROL SULF 0.083% NEB SOLN 3 ML NEB NEB PRN (21:45)
[2018-06-24] MEDS: SERTRALINE HCL 50 MG TAB PO SCH (21:55)
[2018-06-25] VITALS (8 sets, daily range): BP systolic 124–175; BP diastolic 58–73
[2018-06-25] MEDS: CEFTRIAXONE SOD 1 GM/NS 50 ML 50 ML IV SCH ×2 (03:15→15:01)
[2018-06-25 06:19] LABS: BASOPHILS % 0.2 % (0.0-1.0); EOSINOPHILS % 0.1 % (0.0-6.0); HEMATOCRIT 37.7 % (34.2-44.1); HEMOGLOBIN 12.1 g/dL (12.0-16.0); LYMPHOCYTES # (AUTO) 0.4 (1.0-3.2); LYMPHOCYTES % 3.9 % (18.0-39.1); MEAN CORPUSCULAR HEMOGLOBIN 30.9 pg (28-32); MEAN CORPUSCULAR HGB CONC 32.1 g/dL (31-35); MEAN CORPUSCULAR VOLUME 96.4 fL (81-99); MONOCYTES # (AUTO) 0.3 (0.2-0.8); NEUTROPHILS # (AUTO) 10.4 (2.1-6.9); PLATELET COUNT 159 x10e3/uL (140-360); RED CELL DISTRIBUTION WIDTH 13.5 % (11.7-14.4)
[2018-06-25 06:21] LABS: RED BLOOD COUNT 3.91 x10e6/uL (3.6-5.1)
[2018-06-25 06:48] LABS: ANION GAP 18.3 mmol/L (8-16); CALCIUM 9.2 mg/dL (8.4-10.2); CREATININE, SERUM 3.5 mg/dL (0.57-1.11); POTASSIUM 5.3 mmol/L (3.5-5.1)
[2018-06-25] MEDS: ONDANSETRON HCL INJ 2 MG/ML VIAL IV PRN ×2 (06:50→11:50)
--- NOTE | 2018-06-25 07:09 | Progress Note ---
DATE: SUBJECTIVE: The patient came in for COPD exacerbation, hyponatremia, hyperkalemia, and end-stage renal disease. The patient is doing well. Her breathing is improved on O2 nasal cannula. Wheezing is positive, but has decreased in intensity. MEDICATIONS: She is taking Rocephin 1 gram q.12h., gabapentin, metoprolol 50 mg q.12h., and the patient's pain medication methadone and anxiety medicine alprazolam and sertraline. The patient is also on azithromycin for COPD exacerbation. OBJECTIVE VITAL SIGNS: Temperature is 97.4, pulse of 67, respirations of 20, blood pressure is 136/71, pulse oximetry 97% on oxygen 2 liters via nasal cannula. HEENT: Normocephalic and atraumatic. Pupils are reactive to light and accommodation. LUNGS: Positive for wheezing bilaterally, inspiratory wheezes throughout the lung carranza. ABDOMEN: Nontender and nondistended. EXTREMITIES: No clubbing, no cyanosis, no edema. LABORATORY VALUES: Today's white count of 11,000, hemoglobin is 12.1, hematocrit of 37.7, and platelet count of 159. Chemistries; sodium is pending, yesterday it was 137 and was corrected. IMAGING STUDIES: Chest x-ray from yesterday showed stable cardiomediastinal silhouette. No edema and no consolidation. ASSESSMENT 1. Hyponatremia, corrected. 2. Hyperkalemia, corrected. 3. End-stage renal disease, continue with dialysis. 4. Chronic obstructive pulmonary disorder with acute exacerbation and pneumonia. Continue on Solu-Medrol. We decreased it to 40 mg q.12h. We will continue with that. Continue with azithromycin and ceftriaxone. 5. Hypertension, continue with cardiovascular medications. Recheck electrolytes tomorrow. Possible discharge tomorrow. Job#: [id number] BESSY
[2018-06-25] MEDS: ALBUTEROL SULF 0.083% NEB SOLN 3 ML NEB NEB PRN ×2 (07:10→19:40)
[2018-06-25 07:41] LABS: BAND NEUTROPHILS % (MANUAL) 2 %; LYMPHOCYTES % (MANUAL) 2 % (19-48); MONOCYTES % (MANUAL) 2 % (3.4-9.0); NEUTROPHILS % (MANUAL) 94 % (40-74); PLATELET ESTIMATE ADEQUATE; PLATELET MORPHOLOGY COMMENT NORMAL; RBC MORPHOLOGY COMMENT NORMAL
[2018-06-25] MEDS: SEVELAMER CARBONATE 800 MG TAB PO SCH ×3 (08:00→17:00)
[2018-06-25] MEDS: PANTOPRAZOLE SOD 40 MG TABEC PO SCH (09:00)
[2018-06-25] MEDS: GABAPENTIN 100 MG CAP PO SCH ×3 (09:00→21:35)
[2018-06-25] MEDS: CITALOPRAM HYDROBROMIDE 20 MG TAB PO SCH (09:00)
[2018-06-25] MEDS: METOPROLOL TARTRATE 50 MG TAB PO SCH ×2 (09:00→21:32)
[2018-06-25] MEDS: METHADONE HCL 10 MG TAB PO SCH ×2 (09:00→21:35)
[2018-06-25] MEDS: ALPRAZOLAM 0.5 MG TAB PO SCH ×3 (09:00→21:35)
[2018-06-25] MEDS: AZITHROMYCIN 500MG/NS 250 ML 250 ML IV SCH (09:00)
[2018-06-25] MEDS: METHYLPREDNISOLONE SOD SUCC 40 MG/ML VIAL IV SCH ×2 (09:00→21:32)
[2018-06-25] MEDS: BUSPIRONE HCL 5 MG TAB PO SCH ×2 (09:00→21:32)
[2018-06-25] MEDS: LAMOTRIGINE 25 MG TAB PO SCH ×2 (09:00→21:32)
[2018-06-25] MEDS: ASPIRIN 81 MG CHEW TAB PO SCH (09:00)
[2018-06-25] MEDS: NYSTATIN 15 GM POWDER UD BTL TOP SCH (09:00)
--- NOTE | 2018-06-25 09:45 | NUR ---
WITH STANDBY ASSIST, PT OOB TO BS COMMODE, CALL LIGHT WITHIN REACH
[2018-06-25] MEDS ORDERED: DOCUSATE SODIUM 100 MG CAP ONE (12:50)
[2018-06-25] MEDS: DOCUSATE SODIUM 100 MG CAP PO SCH ×2 (13:30→21:32)
--- NOTE | 2018-06-25 19:35 | NUR ---
RECEIVED PATIENT SITTING ON A CHAIR. ALERT AND ORIENTED. WITH OXYGEN AT 4LITER/MIN VIA NASAL CANNULA.
[2018-06-25] MEDS: SERTRALINE HCL 50 MG TAB PO SCH (21:35)
[2018-06-25] MEDS: TRAMADOL HCL 50 MG TAB PO PRN (23:15)
[2018-06-26] VITALS: BP 141/65
[2018-06-26] MEDS: ALBUTEROL SULF 0.083% NEB SOLN 3 ML NEB NEB PRN ×3 (00:10→13:30)
[2018-06-26] MEDS: CEFTRIAXONE SOD 1 GM/NS 50 ML 50 ML IV SCH ×2 (03:05→15:43)
[2018-06-26] MEDS ORDERED: LEVAQUIN500 MG PO (06:30)
[2018-06-26] MEDS ORDERED: PREDNISONE20 MG PO (06:30)
--- NOTE | 2018-06-26 06:44 | NUR ---
MURGUIA CATHETER DISCONTINUED ORDERED BY DR. NUR.
--- NOTE | 2018-06-26 06:44 | Progress Note ---
DATE: Patient is here for COPD exacerbation, history of end-stage renal disease, on dialysis. Patient is also here for pneumonia and congestive heart failure. OBJECTIVE GENERAL: Currently, the patient is doing better. Satting very well at 100% on nasal cannula at 4 L, which is baseline for her. HEENT: Normocephalic and atraumatic. Pupils are reactive to light and accommodation. CV: S1 and S2 normal. Regular rate and rhythm. LUNGS: Positive for a few coarse rhonchi with good air entry. ABDOMEN: Nontender and nondistended. EXTREMITIES: No clubbing. No cyanosis. No edema. LABORATORY VALUES: The patient's white count yesterday was 11,000, hemoglobin 12.5, hematocrit 37.7. The patient is on steroids. Chemistry: Sodium is 136, potassium 5.3, BUN of 49, and creatinine of 3.5. BNP was 220. MEDICATIONS: Include Rocephin and Solu-Medrol 40 mg q.12 h. The patient is also on azithromycin. ASSESSMENT 1. Chronic obstructive pulmonary disease exacerbation with pneumonia. 2. End-stage renal disease. 3. Congestive heart failure, [id number]. 4. History of hypertension. 5. Depression PLAN: Do hemodialysis today. The patient can be discharged home after hemodialysis. Will send the patient home on steroids 20 mg twice a day for 5 days, and also Levaquin 250 mg for 5 days. For further information, look in the chart. The patient can be discharged and follow up with Dr. Smith. Also, HD on her regular dates. Job#: [id number] ARIELLE
[2018-06-26 06:57] LABS: BASOPHILS % 0.1 % (0.0-1.0); HEMATOCRIT 34.1 % (34.2-44.1); HEMOGLOBIN 10.9 g/dL (12.0-16.0); LYMPHOCYTES # (AUTO) 0.5 (1.0-3.2); LYMPHOCYTES % 5.3 % (18.0-39.1); MEAN CORPUSCULAR HEMOGLOBIN 31.1 pg (28-32); MEAN CORPUSCULAR VOLUME 97.2 fL (81-99); MONOCYTES # (AUTO) 0.3 (0.2-0.8); MONOCYTES % 3.4 % (4.4-11.3); NEUTROPHILS # (AUTO) 9.1 (2.1-6.9); NEUTROPHILS % 90.5 % (38.7-80.0); PLATELET COUNT 148 x10e3/uL (140-360); RED BLOOD COUNT 3.51 x10e6/uL (3.6-5.1); RED CELL DISTRIBUTION WIDTH 13.2 % (11.7-14.4)
--- NOTE | 2018-06-26 06:57 | NUR ---
REPORT GIVEN TO ONCOMING NURSE.
[2018-06-26 07:08] LABS: INR 0.87; PROTHROMBIN TIME 12.6 seconds (11.9-14.5)
[2018-06-26] MEDS ORDERED: HYDROXYZINE HCL 25 MG TAB PO ONE (07:15)
[2018-06-26 07:21] LABS: ANION GAP 18.5 mmol/L (8-16); CALCIUM 8.5 mg/dL (8.4-10.2); CREATININE, SERUM 3.89 mg/dL (0.57-1.11); POTASSIUM 5.5 mmol/L (3.5-5.1)
[2018-06-26] MEDS: SEVELAMER CARBONATE 800 MG TAB PO SCH ×2 (08:00→12:00)
[2018-06-26] MEDS ORDERED: SODIUM CHLORIDE 0.9% 1000ML 2,000 ML ONE (08:30)
[2018-06-26] MEDS: METOPROLOL TARTRATE 50 MG TAB PO SCH (09:00)
[2018-06-26] MEDS: PANTOPRAZOLE SOD 40 MG TABEC PO SCH (09:00)
[2018-06-26] MEDS: DOCUSATE SODIUM 100 MG CAP PO SCH (09:00)
[2018-06-26] MEDS: LAMOTRIGINE 25 MG TAB PO SCH (09:00)
[2018-06-26] MEDS: CITALOPRAM HYDROBROMIDE 20 MG TAB PO SCH (09:00)
[2018-06-26] MEDS: METHADONE HCL 10 MG TAB PO SCH (09:00)
[2018-06-26] MEDS: ASPIRIN 81 MG CHEW TAB PO SCH (09:00)
[2018-06-26] MEDS: GABAPENTIN 100 MG CAP PO SCH ×2 (09:00→15:00)
[2018-06-26] MEDS: BUSPIRONE HCL 5 MG TAB PO SCH (09:00)
[2018-06-26] MEDS: NYSTATIN 15 GM POWDER UD BTL TOP SCH (09:00)
[2018-06-26] MEDS: ALPRAZOLAM 0.5 MG TAB PO SCH (09:00)
[2018-06-26 09:04] VITALS: BP 158/70
--- NOTE | 2018-06-26 10:12 | NUR ---
WOUND CARE CONSULT Patient is a 68 y/o female admitted for shortness of breath. Head to toe assessment performed and no open skin identified. Noted area of dermatologic rash to abdominal folds that appears to be healing. Noted patient already on Nystatin Powder and topical antifungal creams. Patient has been using calazime lotion. Education provided about products being used and proper application. She verbalized understanding and repeated back how to use. No further visits required since area appears to be stable. Allergies: Codeine LABS: WBC: 11.25 Hgb: 12.1 Neutrophils: 10.4 Blood Cultures: No Growth RECOMMENDATION: Continue use of Nystatin Powder as prescribed. Addendum: 06/26/18 at 1025 by Yayo Malave RN Amended: Links added.
[2018-06-26 12:00] VITALS: BP 96/52
[2018-06-26] MEDS: METHYLPREDNISOLONE SOD SUCC 40 MG/ML VIAL IV SCH (14:36)
[2018-06-26] MEDS: AZITHROMYCIN 500MG/NS 250 ML 250 ML IV SCH (14:36)
[2018-06-26 17:23] VITALS: BP 121/59
--- NOTE | 2018-06-26 17:45 | NUR ---
Printer not working Discussed discharge instructions with patient, prescriptions for Levaquin and Prednisone she reported she already has Levaquin and Prednisone at home. Verbalized understanding of d/c instructions.
== END 2018-06-26 17:10 | disposition home or self-care (01) ==
LOC: ER 10:55 → ERHOLD 15:06 → MED/SURG 16:59
PROVIDERS: ADMIT Internal Medicine; ATTEND Internal Medicine
DX: J44.0 Chronic obstructive pulmonary disease with (acute) lower respiratory infection (principal); E87.5 Hyperkalemia; N18.6 End stage renal disease; Z99.2 Dependence on renal dialysis; E87.1 Hypo-osmolality and hyponatremia; J44.1 Chronic obstructive pulmonary disease with (acute) exacerbation; J18.9 Pneumonia, unspecified organism; I13.2 Hypertensive heart and chronic kidney disease with heart failure and with stage 5 chronic kidney disease, or end stage renal disease; I50.9 Heart failure, unspecified; Z82.49 Family history of ischemic heart disease and other diseases of the circulatory system; Z88.5 Allergy status to narcotic agent; Z91.15 Patient's noncompliance with renal dialysis; F32.9 Major depressive disorder, single episode, unspecified
CPT/HCPCS: 36415 ×4; 71045; 71046; 80048 ×3; 80053; 81001; 82550 ×2; 82553 ×2; 83605; 83735; 83880; 84484 ×2; 85025 ×4; 85610 ×2; 85730; 86705; 86707; 87040; 87340; 87400; 90935; 93005 ×2; 94640 ×6; 97162; 97530; 99284; G0378 ×4; J0456 ×4; J0696 ×4; J2405 ×4; J2920 ×3; J2930 ×2; J3410; J7030; J7050; S0164 ×2; 90962

== ENCOUNTER 2019-03-26 07:31 | Emergency (ER) | payer MEDICARE ==
[~2019-03-26] VITALS: Ht 170.2 cm; Wt 78.5 kg
[~2019-03-26 07:31] MED LIST changes: +GABAPENTIN100 MG PO; +LEVAQUIN500 MG PO; +PREDNISONE20 MG PO
--- OUTSIDE RECORDS SUMMARY | 2019-03-26 07:36 | XMS REPORT | Continuity of Care Document ---
Author Author [employer] Organization [employer] Address Unknown Phone Unavailable Care Team Providers Care Senior Policy Associate Name Role Phone [employer] Unavailable Unavailable Problems Problem Status Onset Date Classification Date Reported Comments Source WEDGE COMPRESSION FRACTURE LUMBAR VERTEB Active 09/17/2016 [place] Bronchitis Active 06/28/2015 Problem 06/27/2018 [facility] CHF (congestive heart failure) Active 06/28/2015 Problem 06/27/2018 [facility] Obstructive chronic bronchitis with exacerbation Active 06/28/2015 Problem 06/27/2018 [facility] Pneumonia Active 03/21/2015 Problem 06/27/2018 [facility] Altered mental status Active 03/23/2014 Problem 06/27/2018 [facility] End stage renal failure on dialysis Active 03/23/2014 Problem 06/27/2018 [facility] Fever Active 03/23/2014 Problem 06/27/2018 [facility] Chronic headache disorder (disorder) Resolved Problem 09/26/2016 [facility] Obesity (disorder) Active Problem 09/26/2016 [facility] Chronic obstructive pulmonary disease with acute lower respiratory infection Active Problem 06/27/2018 [facility] Pulmonary edema Active Problem 06/27/2018 [facility] Acute on chronic respiratory failure Active Problem 06/27/2018 [facility] WEDGE COMPRESSION FRACTURE OF UNSP LUMBA Active [facility] Medications Medication Details Route Status Patient Instructions Ordering Provider Order Date Source Gabapentin 300 Mg Capsule, 600 Mg Oral Three Times A Day Active 06/24/2018 [facility] Meclizine Hcl 12.5 Mg Tablet, 25 Mg Oral Every 6 Hours Active 02/14/2018 [facility] Ondansetron (Zofran Odt) 4 Mg Tab.rapdis, 8 Mg Oral Every 8 Hours Active 02/14/2018 [facility] Sevelamer Hcl (Renvela) 800 Mg Tab, 1600 Mg Oral W/Snacks Active 02/14/2018 [facility] Escitalopram Oxalate (Lexapro) 10 Mg Tablet, 10 Mg Oral Daily Active 02/13/2018 [facility] Hydrocodone Bit/Acetaminophen (Morning Sun 5-325 Tablet) 1 Each Tablet, 1 Each Oral As Needed Active 02/13/2018 [facility] Nystatin 1 Each Powder.ea., 1 Topically Three Times A Day Active 02/13/2018 [facility] Clindamycin Hcl 150 Mg Capsule, 900 Mg Intraven Every 8 Hours Active 07/14/2017 [facility] Darbepoetin Bartolo In Polysorbat (Aranesp) 60 Mcg/1 Ml Vial, 60 Mcg Subcutaneously Active 07/14/2017 [facility] Docusate Sodium 100 Mg Capsule, 100 Mg Oral Every 12 Hours Active 07/14/2017 [facility] Folic Acid/Vitamin B Comp W-C (Holly-Joshua Tablet) 0.8 Mg Tablet, 1 Tab Oral Daily Active 07/14/2017 [facility] Morphine Sulfate/Pf (Morphine Sulfate 1 Mg/Ml Vial) 30 Mg/30 Ml Reel Cutter.vial, 1 Mg Iv Push As Needed Active 07/14/2017 [facility] Ondansetron Hcl 2 Mg/1 Ml Vial, 4 Mg Intraven As Needed Active 07/14/2017 [facility] Aspirin (Aspir 81) 81 Mg Tablet.dr, 81 Mg Oral Daily Active 01/03/2017 [facility] Breo , Inhalation As Needed Active 01/03/2017 [facility] Buspirone Hcl 15 Mg Tablet, 15 Mg Oral Twice A Day Active 01/03/2017 [facility] Citalopram Hydrobromide (Citalopram Hbr) 20 Mg Tablet, 20 Mg Oral Daily Active 01/03/2017 [facility] Citalopram Hydrobromide (Celexa) 20 Mg Tablet, 20 Mg Oral Daily Active 01/03/2017 [facility] Clindamycin Hcl (Cleocin Hcl) 150 Mg Capsule, 300 Mg Oral Three Times A Day Active 01/03/2017 [facility] Cyclobenzaprine Hcl (Flexeril) 5 Mg Tablet, 1 Mg Oral Twice A Day Active 01/03/2017 [facility] Ethyl Chloride 103.5 Ml [place], 3XWK Active 01/03/2017 [facility] Furosemide 80 Mg Tablet, 80 Mg Oral Twice A Day Active 01/03/2017 [facility] Ibuprofen/Diphenhydramine (Advil Pm Caplet) 1 Each Tablet, 2 Tab Oral Bedtime Active 01/03/2017 [facility] Methadone Hcl (Dolophine Hcl) 5 Mg Tablet, 10 Mg Oral Twice A Day Active 01/03/2017 [facility] Metolazone 5 Mg Tablet, 5 Mg Oral Daily Active 01/03/2017 [facility] Metoprolol Tartrate 50 Mg Tablet, 50 Mg Oral Twice A Day Active 01/03/2017 [facility] Sevelamer Hcl (Renvela) 800 Mg Tab, 2400 Mg Oral Three Times Daily With Meals Active 01/03/2017 [facility] Tramadol Hcl (Ultram) 50 Mg Tablet, 50 Mg Oral As Needed Active 01/03/2017 [facility] Sevelamer Hcl (Renvela) 800 Mg Tab, 800 Mg Oral Daily Active 11/22/2016 [facility] Amlodipine Besylate (Norvasc) 10 Mg Tab, 10 Mg Oral Daily Active 06/29/2016 [facility] Tramadol Hcl (Ultram) 50 Mg Tablet, 50 Mg Oral As Needed Active 06/29/2016 [facility] Buspirone Hcl 5 Mg Tablet, 5 Mg Oral Twice A Day Active 02/24/2016 [facility] Furosemide 20 Mg Tablet, 40 Mg Oral Twice A Day Active 02/24/2016 [facility] Albuterol/Ipratropium (Duoneb 0.5 Mg-3 Mg/3 Ml Soln) 3 Ml Inha, 3 Ml Inhalation Every 6 Hours Active 03/21/2015 [facility] Buspirone Hcl 15 Mg Tablet, 15 Mg Oral Twice A Day Active 03/21/2015 [facility] Diltiazem Hcl (Dilt-Cd) 120 Mg Cap.er.24h, 120 Mg Oral Daily Active 03/21/2015 [facility] Metoclopramide Hcl (Reglan) 10 Mg Tablet, 10 Mg Oral As Needed Active 03/21/2015 [facility] Omeprazole (Prilosec) 20 Mg Capsule.dr, 40 Mg Oral Daily Active 03/21/2015 [facility] Pravastatin Sodium (Pravachol) 20 Mg Tablet, 20 Mg Oral Daily Active 03/21/2015 [facility] Acetaminophen 325 Mg Supp.rect, 325 Mg Rectal Every 4 Hours Active 08/04/2013 [facility] Acetaminophen 325 Mg Tablet, 2 Tab Oral Q4hrs Active 08/04/2013 [facility] Alprazolam (Xanax) 0.25 Mg Tablet, 0.25 Mg Oral Four Times Daily Active 08/04/2013 [facility] Alprazolam 0.25 Mg Tablet, 0.25 Mg Oral Four Times Daily Active 08/04/2013 [facility] Alprazolam 1 Mg Tablet, 1 Tab Oral Every 8 Hours Active 08/04/2013 [facility] Diphenhydramine Hcl (Benadryl) 25 Mg Capsule, 25 Mg Oral Q8hrs Active 08/04/2013 [facility] Duloxetine Hcl (Cymbalta) 20 Mg Capcr, 20 Mg Oral Daily Active 08/04/2013 [facility] Furosemide 20 Mg Tablet, 20 Mg Oral Twice A Day Active 08/04/2013 [facility] Gabapentin 100 Mg Capsule, 300 Mg Oral Twice A Day Active 08/04/2013 [facility] Hydralazine Hcl 10 Mg Tablet, 10 Mg Oral Every 6 Hours While Awake Active 08/04/2013 [facility] Hydrochlorothiazide (Microzide) 12.5 Mg Capsule, 25 Mg Oral Daily Active 08/04/2013 [facility] Imipramine Hcl (Tofranil) 25 Mg Tablet, 125 Mg Oral Bedtime Active 08/04/2013 [facility] Imipramine Pamoate 125 Mg Capsule, 125 Mg Oral Qhs Active 08/04/2013 [facility] Methadone Hcl 10 Mg Tablet, 10 Tab Oral Three Times A Day Active 08/04/2013 [facility] Methylphenidate Hcl (Methylin) 5 Mg Tab.chew, 5 Mg Oral Twice A Day Active 08/04/2013 [facility] Nystatin 100,000 Unit/1 Ml Oral.susp, Active 08/04/2013 [facility] Paroxetine Hcl (Paxil) 40 Mg Tablet, 40 Mg Oral Daily Active 08/04/2013 [facility] Phenytoin 125 Mg/5 Ml Oral.susp, 500 Mg Oral Twice A Day Active 08/04/2013 [facility] Piperacillin Sodium/Tazobactam (Piperacil-Tazo 2.25 Gm Add Vl) 2.25 Gm Vial.port, Active 08/04/2013 [facility] Potassium Chloride 8 Meq Capsule.er, 1 Tab Oral Rt Daily Active 08/04/2013 [facility] Pravastatin Sodium (Pravachol) 40 Mg Tablet, 40 Mg Oral Bedtime Active 08/04/2013 [facility] Simvastatin 20 Mg Tablet, 20 Mg Oral Qhs Active 08/04/2013 [facility] Tramadol Hcl (Ultram 50MG*) 50 Mg Tab, 50 Mg Oral Q6prn Active 08/04/2013 [facility] Vancomycin Hcl 1 Gm Vial, 1 Gm Intraven Every 12 Hours Active 08/04/2013 [facility] Ziprasidone (Geodon) 20 Mg Powd, 10 Mg Intramusc Q8prn Active 08/04/2013 [facility] Zolpidem Tartrate (Ambien Cr) 12.5 Mg Tab.mphase, 12.5 Mg Oral Qhs Prn Active 08/04/2013 [facility] Zolpidem Tartrate (Zolpidem Tartrate Er) 12.5 Mg Tab.mphase, Active 08/04/2013 [facility] Hydrocodone Bit/Acetaminophen (Vicodin Es Tablet) 1 Each Tablet, 10 Mg Oral As Needed Active 03/06/2013 [facility] Imipramine Hcl (Tofranil) 50 Mg Tablet, 50 Mg Oral Qhs Active 12/22/2012 [facility] Acetaminophen 650 Mg Tablet As Needed Active [facility] Albuterol Sulfate 0.63 Mg/3 Ml Vial.neb As Needed Active [facility] Alprazolam (Xanax) 0.5 Mg Tablet Three Times A Day Active [facility] Aspirin (Aspir 81) 81 Mg Tablet. Daily Active [facility] Buspirone Hcl 5 Mg Tablet Twice A Day Active [facility] Calcium Carbonate/Vitamin D3 (Os-Kem 500+D Tablet) 1 Each Tablet Three Times A Day Active [facility] Citalopram Hydrobromide (Citalopram Hbr) 20 Mg Tablet Daily Active [facility] Cyclobenzaprine Hcl (Flexeril) 5 Mg Tablet Three Times A Day Active [facility] Furosemide 40 Mg Tablet Twice A Day Active [facility] Gabapentin 100 Mg Capsule Three Times A Day Active [facility] Hydroxyzine Hcl 25 Mg Tablet Every 8 Hours as needed for Itching Active [facility] Lamotrigine 100 Mg Tablet Twice A Day Active [facility] Levofloxacin (Levaquin) 500 Mg Tablet Daily Active [facility] Methadone Hcl 10 Mg Tablet Twice A Day Active [facility] Metoprolol Tartrate 50 Mg Tablet Twice A Day Active [facility] Ondansetron Hcl (Zofran*) 4 Mg Tablet Every 4 Hours as needed for Nausea Active [facility] Pantoprazole Sodium (Protonix) 40 Mg Tablet.dr Daily Active [facility] Prednisone 20 Mg Tab Twice A Day Active [facility] Sertraline Hcl 50 Mg Tablet Bedtime Active [facility] Sevelamer Hcl (Renagel) 800 Mg Tablet Three Times Daily With Meals Active [facility] Tramadol Hcl (Ultram) 50 Mg Tablet Three Times A Day as needed for Pain Active [facility] Allergies, Adverse Reactions, Alerts Substance Category Reaction Severity Reaction type Status Date Reported Comments Source Codeine FACIAL/TONGUE SWELLING Severe Allergy to Substance Active 06/23/2018 [facility] Adhesive Tape Assertion Tears skin <not entered> Drug allergy Active [facility] codeine Assertion 35 years ago it made my lips swell, itching <not entered> Drug allergy Active [facility] Immunizations No Data Provided for This Section Results Order Name Results Value Reference Range Date Interpretation Comments Source Blood leukocytes automated count (number/volume) 10.06 4.8 - 10.8 06/26/2018 [facility] Blood erythrocytes automated count (number/volume) 3.51 3.6 - 5.1 06/26/2018 [facility] Blood hemoglobin measurement (moles/volume) 10.9 12.0 - 16.0 06/26/2018 [facility] Automated blood hematocrit (volume fraction) 34.1 34.2 - 44.1 06/26/2018 [facility] Automated erythrocyte mean corpuscular volume 97.2 81 - 99 06/26/2018 [facility] Automated erythrocyte mean corpuscular hemoglobin (mass per erythrocyte) 31.1 28 - 32 06/26/2018 [facility] Automated erythrocyte mean corpuscular hemoglobin concentration measurement (mass/volume) 32.0 31 - 35 06/26/2018 [facility] RDW BldCo-Rto 13.2 11.7 - 14.4 06/26/2018 [facility] Automated blood platelet count (count/volume) 148 140 - 360 06/26/2018 [facility] Automated blood segmented neutrophil count as percentage of total leukocytes 90.5 38.7 - 80.0 06/26/2018 [facility] Automated blood lymphocyte count as percentage ot total leukocytes 5.3 18.0 - 39.1 06/26/2018 [facility] Automated blood monocyte count as percentage of total leukocytes 3.4 4.4 - 11.3 06/26/2018 [facility] Automated blood eosinophil count as percentage of total leukocytes 0.0 0.0 - 6.0 06/26/2018 [facility] Automated blood basophil count as percentage of total leukocytes 0.1 0.0 - 1.0 06/26/2018 [facility] IM GRANULOCYTES % 0.7 0.0 - 1.0 06/26/2018 [facility] Automated blood neutrophil count 9.1 2.1 - 6.9 06/26/2018 [facility] Blood lymphocytes count (number/volume) 0.5 1.0 - 3.2 06/26/2018 [facility] Blood monocytes automated count (number/volume) 0.3 0.2 - 0.8 06/26/2018 [facility] Automated blood eosinophil count 0.0 0.0 - 0.4 06/26/2018 [facility] Automated blood basophil count (count/volume) 0.0 0.0 - 0.1 06/26/2018 [facility] Absolute Immature Granulocyte (auto 0.07 0 - 0.1 06/26/2018 [facility] Prothrombin time (PT) in platelet poor plasma by coagulation assay 12.6 11.9 - 14.5 06/26/2018 [facility] INR in Platelet poor plasma by Coagulation assay 0.87 06/26/2018 [facility] Serum or plasma sodium measurement (moles/volume) 132 136 - 145 06/26/2018 [facility] Serum or plasma potassium measurement (moles/volume) 5.5 3.5 - 5.1 06/26/2018 [facility] Serum or plasma chloride measurement (moles/volume) 96 98 - 107 06/26/2018 [facility] Serum or plasma carbon dioxide, total measurement (moles/volume) 23 22 - 29 06/26/2018 [facility] Serum or plasma anion gap 18.5 8 - 16 06/26/2018 [facility] Serum or plasma urea nitrogen measurement (mass/volume) 67 7 - 26 06/26/2018 [facility] Serum or plasma creatinine measurement (mass/volume) 3.89 0.57 - 1.11 06/26/2018 [facility] Serum or plasma urea nitrogen/creatinine mass ratio 17 6 - 25 06/26/2018 [facility] Estimated glomerular filtration rate (GFR) determination 11 60 06/26/2018 [facility] Glucose measurement 128 74 - 118 06/26/2018 [facility] Serum or plasma calcium measurement (mass/volume) 8.5 8.4 - 10.2 06/26/2018 [facility] Differential Total Cells Counted 100 06/25/2018 [facility] Manual blood neutrophils/100 leukocytes 94 40 - 74 06/25/2018 [facility] Manual blood band neutrophils form/100 leukocytes 2 06/25/2018 [facility] Manual blood lymphocytes/100 leukocytes 2 19 - 48 06/25/2018 [facility] Manual blood monocytes/100 leukocytes 2 3.4 - 9.0 06/25/2018 [facility] Blood platelets count by estimate (number/volume) ADEQUATE 06/25/2018 [facility] Platelet morphology NORMAL 06/25/2018 [facility] RBC morphology NORMAL 06/25/2018 [facility] Serum or plasma creatine kinase measurement (enzymatic activity/volume) 52 29 - 168 06/24/2018 [facility] Serum or plasma creatine kinase MB measurement (mass/volume) 3.00 0 - 5.0 06/24/2018 [facility] Troponin I measurement by highly sensitive enzyme immunoassay < 0.088 0 - 0.300 06/24/2018 [facility] Qualitative serum or plasma hepatitis B virus e antibody by enzyme immunoassay Negative Negative 06/23/2018 [facility] Serum or plasma hepatitis B virus surface antigen detection by immunoassay Negative 06/23/2018 [facility] Serum or plasma hepatitis B virus core IgM antibody detection by immunoassay Negative 06/23/2018 [facility] Urine color determination YELLOW YELLOW 06/23/2018 [facility] Urine clarity CLEAR CLEAR 06/23/2018 [facility] Specific gravity of Urine by Test strip 1.010 1.010 - 1.025 06/23/2018 [facility] Urine pH measurement by automated test strip 7 5 - 7 06/23/2018 [facility] Urine leukocyte esterase detection by dipstick NEGATIVE NEGATIVE 06/23/2018 [facility] Urine nitrite detection NEGATIVE NEGATIVE 06/23/2018 [facility] Urine protein measurement by test strip (mass/volume) NEGATIVE NEGATIVE 06/23/2018 [facility] Urine glucose detection NEGATIVE NEGATIVE 06/23/2018 [facility] Urine ketones detection by automated test strip NEGATIVE NEGATIVE 06/23/2018 [facility] Urine urobilinogen measurement by test strip (mass/volume) 0.2 0.2 - 1 06/23/2018 [facility] Urine total bilirubin measurement (mass/volume) NEGATIVE NEGATIVE 06/23/2018 [facility] Urine erythrocytes detection TRACE NEGATIVE 06/23/2018 [facility] Automated urine sediment leukocyte count by microscopy (number/high power field) NONE 0 - 5 06/23/2018 [facility] Erythrocytes detection in urine sediment by light microscopy 6-10 0 - 5 06/23/2018 [facility] Bacteria detection in urine sediment by light microscopy RARE NONE 06/23/2018 [facility] Epithelial cells detection in urine sediment by light microscopy RARE NONE 06/23/2018 [facility] Activated partial thromboplastin time (aPTT) in platelet poor plasma bycoagulation assay 38.5 23.8 - 35.5 06/23/2018 [facility] Influenza virus A and B antigen identification by immunofluorescence NEGATIVE NEGATIVE 06/23/2018 [facility] Lactic Acid Level 11.6 4.5 - 19.8 06/23/2018 [facility] Serum or plasma magnesium measurement (mass/volume) 2.1 1.3 - 2.1 06/23/2018 [facility] Serum or plasma total bilirubin measurement (mass/volume) 0.6 0.2 - 1.2 06/23/2018 [facility] Aspartate Amino Transf (AST/SGOT) 17 5 - 34 06/23/2018 [facility] Serum or plasma alanine aminotransferase measurement (enzymatic activity/volume) 9 0 - 55 06/23/2018 [facility] Serum or plasma protein measurement (mass/volume) 7.0 6.5 - 8.1 06/23/2018 [facility] Serum or plasma albumin measurement (mass/volume) 3.4 3.5 - 5.0 06/23/2018 [facility] Plasma globulin measurement (mass/volume) 3.6 2.3 - 3.5 06/23/2018 [facility] Serum or plasma albumin/globulin mass ratio 0.9 0.8 - 2.0 06/23/2018 [facility] Serum or plasma alkaline phosphatase measurement (enzymatic activity/volume) 175 40 - 150 06/23/2018 [facility] BNP Bld-mCnc 220.3 0 - 100 06/23/2018 [facility] Blood culture NO GROWTH AFTER 72 HOURS 06/23/2018 [facility] Capillary blood glucose measurement by glucometer (mass/volume) 119 70 - 120 02/15/2018 [facility] Bacteria identification in sputum by respiratory culture Organism: ANSON ALBICANS 02/15/2018 [facility] Serum hepatitis B virus surface antibody assay by radioimmunoassay (units/volume) <3.1 Immunity>9.9 02/14/2018 [facility] Serum or plasma hepatitis B virus core antibody detection by immunoassay Negative Negative 02/14/2018 [facility] Arterial blood pH measurement 7.35 7.31 - 7.41 02/13/2018 [facility] pCO2 BldA 47 41 - 51 02/13/2018 [facility] pCO2 BldA 117 80 - 105 02/13/2018 [facility] Arterial blood bicarbonate measurement (moles/volume) 26 23 - 28 02/13/2018 [facility] Arterial blood base excess by calculation 1.0 -2 - 3 - 2 02/13/2018 [facility] Arterial blood oxygen saturation measurement 98.0 95 - 98 02/13/2018 [facility] FiO2 32 02/13/2018 [facility] Bacterial blood culture Organism: STAPHYLOCOCCUS SP COAG NEG 02/13/2018 [facility] Pathology Reports No Data Provided for This Section Diagnostic Reports Report Value Date Source Spine lumbar wo contrast CT Spine [...] greater detail on the MRI study. SL: [id number] 09/23/2016 [facility] Consultation Notes No Data Provided for This Section Discharge Summaries No Data Provided for This Section History and Physicals No Data Provided for This Section Vital Signs No Data Provided for This Section Encounters Location Location Details Encounter Type Encounter Number Reason For Visit Attending Provider ADM Date DC Date Status Source Outpatient [id number] [facility] 08/31/2016 Active [facility] Outpatient [id number] [facility] 09/14/2016 [facility] Outpatient [id number] [facility] 09/23/2016 09/24/2016 [facility] Discharged Inpatient [id number] TODD SANTIAGO MD 02/13/2018 02/15/2018 [facility] Departed Emergency Room [id number] RENÉE BARBA MD 05/04/2018 05/04/2018 [facility] Discharged Inpatient (obs) [id number] TODD SANTIAGO MD 06/23/2018 06/26/2018 [facility] Procedures Procedure Code Date Perfomer Comments Source X-ray of chest, two views [id number] 06/23/2018 [facility] Computed tomography of brain without radiopaque contrast [id number] 05/04/2018 NUR [facility] Computed tomography of cervical spine without contrast [id number] 05/04/2018 BOOM [facility] PERFORMANCE OF URINARY FILTRATION, <6 HRS/DAY [id number] 02/13/2018 PERRY [facility] Excision of gallbladder [id number] [facility] Knee joint operation [id number] [facility] Assessment and Plan No Data Provided for This Section Plan of Care Plan of Care Date Source Discharge Date 06/26/18 5:10pm Disposition HOME, SELF-CARE Instructions/Education Provided COPD Prescriptions See Medication Section Additional Instructions/Education RENAL DIET FOLLOW UP WITH PRIMARY IN 7-10 DAYS 06/26/2018 [facility] Social History Social History Date Source Social History Problem Response Recorded Date/Time Onset Date Status Hx Psychiatric Problems No 12/07/2016 10:35pm Not Applicable Not Applicable Hx Eating Disorder No 12/07/2016 10:35pm Not Applicable Not Applicable Hx Substance Use Disorder No 12/07/2016 10:35pm Not Applicable Not Applicable Hx Depression No 12/07/2016 10:35pm Not Applicable Not Applicable Hx Alcohol Use No 12/07/2016 10:35pm Not Applicable Not Applicable Hx Substance Use Treatment No 12/07/2016 10:35pm Not Applicable Not Applicable Hx Physical Abuse No 12/07/2016 10:35pm Not Applicable Not Applicable Smoking Status Start Date Stop Date Current every day smoker 06/26/2018 [facility] Social History TypeResponse Alcohol Current, Type Liquor. Frequency: 1-2 times per year. Smoking Status Current every day smoker; Type: Cigarettes; Exposure to Tobacco Smoke Unable to obtain; Cigarette Smoking Last 365 Days Yes; Reg Smoking Cessation Counseling No 09/14/2016 [facility] Family History Value Date Source Relationship Condition Age at Onset Recorded Date/Time 33 Father Family history of autoimmune disorder 50's - 60 03/22/2015 11:33pm 32 Mother Family history of psychiatric care 60 years and older 03/22/2015 11:31pm 09 Sister Family history of bowel disorder 20's - 25 03/22/2015 11:28pm 09 Sister Family history of diabetes mellitus Unknown 03/22/2015 11:28pm 19 Son Family history of diabetes mellitus Not Recorded 03/22/2015 11:28pm 06/26/2018 [facility] Advance Directives Order Name Results Value Date Source Advance Directives Advance Directives Directive Response Recorded Date/Time Does the patient have an advance directive? Yes 06/23/18 5:32pm If yes, is advance directive on file with [facility]? No 06/23/18 5:32pm If not on file with [facility] will patient provide a copy? Yes 06/23/18 5:32pm Do you have a Directive to Physician? Yes 06/23/18 2:04pm Do you have a Medical Power of Candle Wrapping Machine Operator? Yes 06/23/18 2:04pm Do you have an out of hospital Do Not Resuscitate Order? Yes 06/23/18 2:04pm Do you have any special needs we should be aware of? U 06/23/18 2:04pm Do you have a support person here with you today? Yes 06/23/18 2:04pm Did patient receive Notice of Privacy Practices? Yes 06/23/18 2:05pm Did patient receive patient rights and responsibilities? Yes 06/23/18 2:05pm 06/26/2018 [facility] Functional Status No Data Provided for This Section
--- OUTSIDE RECORDS SUMMARY | 2019-03-26 07:36 | XMS REPORT | Clinical Summary ---
Author Author [facility]ILOME[facility] Address Unknown Phone Unavailable Care Team Providers Care Tie Layer Name Role Phone PCP Unavailable Allergies Comments [...] Lot Implanted Type Area Manufactur er 12/31/2017 [id number] / [id number] / [id number] Grft Taurus Mrtrstm 1000mg [id number] - Tissue Left: Leg [employer] [id number] Graft/Subs Implanted: Qty: 1 on 04/12/2016 by Sreekanth De La O MD 12/31/2017 [id number] / [id number] / [id number] Grft Taurus Mrtrstm 1000mg [id number] - Tissue Left: Leg [employer] [id number] Graft/Subs Implanted: Qty: 1 on 04/12/2016 by Sreekanth De La O MD 10/01/2017 [id number] / [id number] / [id number] Drsng Matristem Meshed [id number] Tissue Left: Leg [employer] [id number] - [id number] Graft/Subs Implanted: Qty: 1 on 04/12/2016 by Sreekanth De La O MD Results Not on fileafter 03/25/2018 Insurance Payer Benefit Subscriber ID Type Phone Address Plan / Group MEDICARE MEDICARE A xxxxxxxxxx Medicare B [facility] [place] xxxxxxxxx [facility] Advance Directives For more information, please contact: [facility] [address] [place] [address] Date Inactivated Comments Code Status Date Activated 04/13/2016 7:49 PM Full Code 04/03/2016 12:26 PM This code status was determined by: Patient 04/03/2016 12:26 PM Full Code 04/03/2016 12:34 AM This code status was determined by: Patient
[2019-03-26] MEDS ORDERED: ASPIRIN 81 MG CHEW TAB PO ONE (07:45)
[2019-03-26 08:35] LABS: BASOPHILS % 0.3 % (0.0-1.0); EOSINOPHILS # (AUTO) 0.1 (0.0-0.4); HEMATOCRIT 28.5 % (34.2-44.1); HEMOGLOBIN 9.4 g/dL (12.0-16.0); LYMPHOCYTES # (AUTO) 0.5 (1.0-3.2); LYMPHOCYTES % 5.3 % (18.0-39.1); MEAN CORPUSCULAR HEMOGLOBIN 31.8 pg (28-32); MEAN CORPUSCULAR VOLUME 96.3 fL (81-99); MONOCYTES # (AUTO) 1.3 (0.2-0.8); MONOCYTES % 12.9 % (4.4-11.3); NEUTROPHILS # (AUTO) 7.9 (2.1-6.9); PLATELET COUNT 194 x10e3/uL (140-360); RED BLOOD COUNT 2.96 x10e6/uL (3.6-5.1); RED CELL DISTRIBUTION WIDTH 13.8 % (11.7-14.4)
[2019-03-26 08:48] LABS: INR 0.94; PROTHROMBIN TIME 13.1 seconds (11.9-14.5)
[2019-03-26 08:49] LABS: PARTIAL THROMBOPLASTIN TIME 43.4 seconds (23.8-35.5)
[2019-03-26 08:56] LABS: ALBUMIN 2.8 g/dL (3.5-5.0); ALBUMIN/GLOBULIN RATIO 0.8 (0.8-2.0); ANION GAP 13.2 mmol/L (8-16); CALCIUM 8.8 mg/dL (8.4-10.2); CREATININE, SERUM 4.61 mg/dL (0.57-1.11); POTASSIUM 5.2 mmol/L (3.5-5.1)
[2019-03-26 09:02] LABS: CREATINE KINASE MB 2.9 ng/mL (0-5.0)
[2019-03-26] MEDS ORDERED: SODIUM CHLORIDE 0.9% 500ML 500 ML IV ONE (09:30)
[2019-03-26] MEDS ORDERED: SOD POLYSTYRENE SULFONATE SUSP 15 GM/60 ML BTL PO ONE (10:00)
[2019-03-26 10:16] VITALS: BP 112/75
--- NOTE | 2019-03-26 10:19 | NUR ---
[facility] contacted for transport to [facility]; eta appox 30-40 min at 1019
--- NOTE | 2019-03-26 10:22 | NUR ---
report given to reji simms at the [facility]
== END 2019-03-26 11:15 | disposition home or self-care (01) ==
LOC: ER 07:31
DX: M25.551 Pain in right hip (principal); M79.661 Pain in right lower leg; M25.571 Pain in right ankle and joints of right foot; M79.89 Other specified soft tissue disorders
CPT/HCPCS: 36415; 80053; 82550; 82553; 84484; 85025; 85610; 85730; 93005; 93971; 99284

== ENCOUNTER 2019-03-31 23:28 | Observation (INO) | payer MEDICARE ==
[~2019-03-31] VITALS: Ht 170.2 cm; Wt 85.7 kg
--- OUTSIDE RECORDS SUMMARY | 2019-03-31 23:33 | XMS REPORT | Clinical Summary ---
Author Author [facility]ILOMENA [facility] Address Unknown Phone Unavailable Care Team Providers Care Rib Cutter Name Role Phone PCP Unavailable Allergies Comments [...] Lot Implanted Type Area Manufactur er 12/31/2017 [id number] / [id number] / [id number] Grft Taurus Mrtrstm 1000mg [id number] - Tissue Left: Leg [employer] [id number] Graft/Subs Implanted: Qty: 1 on 04/12/2016 by Sreekanth De La O MD 12/31/2017 [id number] / [id number] / [id number] Grft Taurus Mrtrstm 1000mg [id number] - Tissue Left: Leg [employer] [id number] Graft/Subs Implanted: Qty: 1 on 04/12/2016 by Sreekanth De La O MD 10/01/2017 [id number] / [id number] / [id number] Drsng Matristem Meshed [id number] Tissue Left: Leg [employer] [id number] - [id number] Graft/Subs Implanted: Qty: 1 on 04/12/2016 by Sreekanth De La O MD Results Not on fileafter 03/30/2018 Insurance Payer Benefit Subscriber ID Type Phone Address Plan / Group MEDICARE MEDICARE A xxxxxxxxxx Medicare B [facility] [place] xxxxxxxxx [facility] Advance Directives For more information, please contact: [facility] [address] [place] [address] Date Inactivated Comments Code Status Date Activated 04/13/2016 7:49 PM Full Code 04/03/2016 12:26 PM This code status was determined by: Patient 04/03/2016 12:26 PM Full Code 04/03/2016 12:34 AM This code status was determined by: Patient
--- OUTSIDE RECORDS SUMMARY | 2019-03-31 23:33 | XMS REPORT | Continuity of Care Document ---
Author Author [facility] Address Unknown Phone Unavailable Care Team Providers Care Hotel Operations Manager Name Role Phone [facility] Unavailable Unavailable Problems Problem Status Onset Date Classification Date Reported Comments Source WEDGE COMPRESSION FRACTURE LUMBAR VERTEB Active 09/17/2016 [place] Bronchitis Active 06/28/2015 Problem 06/27/2018 [facility] CHF (congestive heart failure) Active 06/28/2015 Problem 06/27/2018 [facility] Obstructive chronic bronchitis with exacerbation Active 06/28/2015 Problem 06/27/2018 [facility] Pneumonia Active 03/21/2015 Problem 06/27/2018 [facility] Altered mental status Active 03/23/2014 Problem 06/27/2018 [facility] End stage renal failure on dialysis Active 03/23/2014 Problem 06/27/2018 [facility] Fever Active 03/23/2014 Problem 06/27/2018 [facility] Chronic headache disorder (disorder) Resolved Problem 09/26/2016 [facility] Obesity (disorder) Active Problem 09/26/2016 [facility] Chronic obstructive pulmonary disease with acute lower respiratory infection Active Problem 06/27/2018 [facility] Pulmonary edema Active Problem 06/27/2018 [facility] Acute on chronic respiratory failure Active Problem 06/27/2018 [facility] WEDGE COMPRESSION FRACTURE OF UNSP LUMBA Active [facility] Medications Medication Details Route Status Patient Instructions Ordering Provider Order Date Source Gabapentin 300 Mg Capsule, 600 Mg Oral Three Times A Day Active 06/24/2018 [facility] Meclizine Hcl 12.5 Mg Tablet, 25 Mg Oral Every 6 Hours Active 02/14/2018 [facility] Ondansetron (Zofran Odt) 4 Mg Tab.rapdis, 8 Mg Oral Every 8 Hours Active 02/14/2018 [facility] Sevelamer Hcl (Renvela) 800 Mg Tab, 1600 Mg Oral W/Snacks Active 02/14/2018 [facility] Escitalopram Oxalate (Lexapro) 10 Mg Tablet, 10 Mg Oral Daily Active 02/13/2018 [facility] Hydrocodone Bit/Acetaminophen (Creede 5-325 Tablet) 1 Each Tablet, 1 Each Oral As Needed Active 02/13/2018 [facility] Nystatin 1 Each Powder.ea., 1 Topically Three Times A Day Active 02/13/2018 [facility] Clindamycin Hcl 150 Mg Capsule, 900 Mg Intraven Every 8 Hours Active 07/14/2017 [facility] Darbepoetin [place] In Polysorbat (Aranesp) 60 Mcg/1 Ml Vial, 60 Mcg Subcutaneously Active 07/14/2017 [facility] Docusate Sodium 100 Mg Capsule, 100 Mg Oral Every 12 Hours Active 07/14/2017 [facility] Folic Acid/Vitamin B Comp W-C (Holly-Joshua Tablet) 0.8 Mg Tablet, 1 Tab Oral Daily Active 07/14/2017 [facility] Morphine Sulfate/Pf (Morphine Sulfate 1 Mg/Ml Vial) 30 Mg/30 Ml Ambulance Paramedic.vial, 1 Mg Iv Push As Needed Active 07/14/2017 [facility] Ondansetron Hcl 2 Mg/1 Ml Vial, 4 Mg Intraven As Needed Active 07/14/2017 [facility] Aspirin (Aspir 81) 81 Mg Tablet.dr, 81 Mg Oral Daily Active 01/03/2017 [facility] Breo , Inhalation As Needed Active 01/03/2017 [facility] Buspirone Hcl 15 Mg Tablet, 15 Mg Oral Twice A Day Active 01/03/2017 [facility] Citalopram Hydrobromide (Citalopram Hbr) 20 Mg Tablet, 20 Mg Oral Daily Active 01/03/2017 [facility] Citalopram Hydrobromide (Celexa) 20 Mg Tablet, 20 Mg Oral Daily Active 01/03/2017 [facility] Clindamycin Hcl (Cleocin Hcl) 150 Mg Capsule, 300 Mg Oral Three Times A Day Active 01/03/2017 [facility] Cyclobenzaprine Hcl (Flexeril) 5 Mg Tablet, 1 Mg Oral Twice A Day Active 01/03/2017 [facility] Ethyl Chloride 103.5 Ml [place], 3XWK Active 01/03/2017 [facility] Furosemide 80 Mg Tablet, 80 Mg Oral Twice A Day Active 01/03/2017 [facility] Ibuprofen/Diphenhydramine (Advil Pm Caplet) 1 Each Tablet, 2 Tab Oral Bedtime Active 01/03/2017 [facility] Methadone Hcl (Dolophine Hcl) 5 Mg Tablet, 10 Mg Oral Twice A Day Active 01/03/2017 [facility] Metolazone 5 Mg Tablet, 5 Mg Oral Daily Active 01/03/2017 [facility] Metoprolol Tartrate 50 Mg Tablet, 50 Mg Oral Twice A Day Active 01/03/2017 [facility] Sevelamer Hcl (Renvela) 800 Mg Tab, 2400 Mg Oral Three Times Daily With Meals Active 01/03/2017 [facility] Tramadol Hcl (Ultram) 50 Mg Tablet, 50 Mg Oral As Needed Active 01/03/2017 [facility] Sevelamer Hcl (Renvela) 800 Mg Tab, 800 Mg Oral Daily Active 11/22/2016 [facility] Amlodipine Besylate (Norvasc) 10 Mg Tab, 10 Mg Oral Daily Active 06/29/2016 [facility] Tramadol Hcl (Ultram) 50 Mg Tablet, 50 Mg Oral As Needed Active 06/29/2016 [facility] Buspirone Hcl 5 Mg Tablet, 5 Mg Oral Twice A Day Active 02/24/2016 [facility] Furosemide 20 Mg Tablet, 40 Mg Oral Twice A Day Active 02/24/2016 [facility] Albuterol/Ipratropium (Duoneb 0.5 Mg-3 Mg/3 Ml Soln) 3 Ml Inha, 3 Ml Inhalation Every 6 Hours Active 03/21/2015 [facility] Buspirone Hcl 15 Mg Tablet, 15 Mg Oral Twice A Day Active 03/21/2015 [facility] Diltiazem Hcl (Dilt-Cd) 120 Mg Cap.er.24h, 120 Mg Oral Daily Active 03/21/2015 [facility] Metoclopramide Hcl (Reglan) 10 Mg Tablet, 10 Mg Oral As Needed Active 03/21/2015 [facility] Omeprazole (Prilosec) 20 Mg Capsule.dr, 40 Mg Oral Daily Active 03/21/2015 [facility] Pravastatin Sodium (Pravachol) 20 Mg Tablet, 20 Mg Oral Daily Active 03/21/2015 [facility] Acetaminophen 325 Mg Supp.rect, 325 Mg Rectal Every 4 Hours Active 08/04/2013 [facility] Acetaminophen 325 Mg Tablet, 2 Tab Oral Q4hrs Active 08/04/2013 [facility] Alprazolam (Xanax) 0.25 Mg Tablet, 0.25 Mg Oral Four Times Daily Active 08/04/2013 [facility] Alprazolam 0.25 Mg Tablet, 0.25 Mg Oral Four Times Daily Active 08/04/2013 [facility] Alprazolam 1 Mg Tablet, 1 Tab Oral Every 8 Hours Active 08/04/2013 [facility] Diphenhydramine Hcl (Benadryl) 25 Mg Capsule, 25 Mg Oral Q8hrs Active 08/04/2013 [facility] Duloxetine Hcl (Cymbalta) 20 Mg Capcr, 20 Mg Oral Daily Active 08/04/2013 [facility] Furosemide 20 Mg Tablet, 20 Mg Oral Twice A Day Active 08/04/2013 [facility] Gabapentin 100 Mg Capsule, 300 Mg Oral Twice A Day Active 08/04/2013 [facility] Hydralazine Hcl 10 Mg Tablet, 10 Mg Oral Every 6 Hours While Awake Active 08/04/2013 [facility] Hydrochlorothiazide (Microzide) 12.5 Mg Capsule, 25 Mg Oral Daily Active 08/04/2013 [facility] Imipramine Hcl (Tofranil) 25 Mg Tablet, 125 Mg Oral Bedtime Active 08/04/2013 [facility] Imipramine Pamoate 125 Mg Capsule, 125 Mg Oral Qhs Active 08/04/2013 [facility] Methadone Hcl 10 Mg Tablet, 10 Tab Oral Three Times A Day Active 08/04/2013 [facility] Methylphenidate Hcl (Methylin) 5 Mg Tab.chew, 5 Mg Oral Twice A Day Active 08/04/2013 [facility] Nystatin 100,000 Unit/1 Ml Oral.susp, Active 08/04/2013 [facility] Paroxetine Hcl (Paxil) 40 Mg Tablet, 40 Mg Oral Daily Active 08/04/2013 [facility] Phenytoin 125 Mg/5 Ml Oral.susp, 500 Mg Oral Twice A Day Active 08/04/2013 [facility] Piperacillin Sodium/Tazobactam (Piperacil-Tazo 2.25 Gm Add Vl) 2.25 Gm Vial.port, Active 08/04/2013 [facility] Potassium Chloride 8 Meq Capsule.er, 1 Tab Oral Rt Daily Active 08/04/2013 [facility] Pravastatin Sodium (Pravachol) 40 Mg Tablet, 40 Mg Oral Bedtime Active 08/04/2013 [facility] Simvastatin 20 Mg Tablet, 20 Mg Oral Qhs Active 08/04/2013 [facility] Tramadol Hcl (Ultram 50MG*) 50 Mg Tab, 50 Mg Oral Q6prn Active 08/04/2013 [facility] Vancomycin Hcl 1 Gm Vial, 1 Gm Intraven Every 12 Hours Active 08/04/2013 [facility] Ziprasidone (Geodon) 20 Mg Powd, 10 Mg Intramusc Q8prn Active 08/04/2013 [facility] Zolpidem Tartrate (Ambien Cr) 12.5 Mg Tab.mphase, 12.5 Mg Oral Qhs Prn Active 08/04/2013 [facility] Zolpidem Tartrate (Zolpidem Tartrate Er) 12.5 Mg Tab.mphase, Active 08/04/2013 [facility] Hydrocodone Bit/Acetaminophen (Vicodin Es Tablet) 1 Each Tablet, 10 Mg Oral As Needed Active 03/06/2013 [facility] Imipramine Hcl (Tofranil) 50 Mg Tablet, 50 Mg Oral Qhs Active 12/22/2012 [facility] Acetaminophen 650 Mg Tablet As Needed Active [facility] Albuterol Sulfate 0.63 Mg/3 Ml Vial.neb As Needed Active [facility] Alprazolam (Xanax) 0.5 Mg Tablet Three Times A Day Active [facility] Aspirin (Aspir 81) 81 Mg Tablet. Daily Active [facility] Buspirone Hcl 5 Mg Tablet Twice A Day Active [facility] Calcium Carbonate/Vitamin D3 (Os-Kem 500+D Tablet) 1 Each Tablet Three Times A Day Active [facility] Citalopram Hydrobromide (Citalopram Hbr) 20 Mg Tablet Daily Active [facility] Cyclobenzaprine Hcl (Flexeril) 5 Mg Tablet Three Times A Day Active [facility] Furosemide 40 Mg Tablet Twice A Day Active [facility] Gabapentin 100 Mg Capsule Three Times A Day Active [facility] Hydroxyzine Hcl 25 Mg Tablet Every 8 Hours as needed for Itching Active [facility] Lamotrigine 100 Mg Tablet Twice A Day Active [facility] Levofloxacin (Levaquin) 500 Mg Tablet Daily Active [facility] Methadone Hcl 10 Mg Tablet Twice A Day Active [facility] Metoprolol Tartrate 50 Mg Tablet Twice A Day Active [facility] Ondansetron Hcl (Zofran*) 4 Mg Tablet Every 4 Hours as needed for Nausea Active [facility] Pantoprazole Sodium (Protonix) 40 Mg Tablet.dr Daily Active [facility] Prednisone 20 Mg Tab Twice A Day Active [facility] Sertraline Hcl 50 Mg Tablet Bedtime Active [facility] Sevelamer Hcl (Renagel) 800 Mg Tablet Three Times Daily With Meals Active [facility] Tramadol Hcl (Ultram) 50 Mg Tablet Three Times A Day as needed for Pain Active [facility] Allergies, Adverse Reactions, Alerts Substance Category Reaction Severity Reaction type Status Date Reported Comments Source Codeine FACIAL/TONGUE SWELLING Severe Allergy to Substance Active 06/23/2018 [facility] Adhesive Tape Assertion Tears skin <not entered> Drug allergy Active [facility] codeine Assertion 35 years ago it made my lips swell, itching <not entered> Drug allergy Active [facility] Immunizations No Data Provided for This Section Results Order Name Results Value Reference Range Date Interpretation Comments Source Blood leukocytes automated count (number/volume) 10.06 4.8 - 10.8 06/26/2018 [facility] Blood erythrocytes automated count (number/volume) 3.51 3.6 - 5.1 06/26/2018 [facility] Blood hemoglobin measurement (moles/volume) 10.9 12.0 - 16.0 06/26/2018 [facility] Automated blood hematocrit (volume fraction) 34.1 34.2 - 44.1 06/26/2018 [facility] Automated erythrocyte mean corpuscular volume 97.2 81 - 99 06/26/2018 [facility] Automated erythrocyte mean corpuscular hemoglobin (mass per erythrocyte) 31.1 28 - 32 06/26/2018 [facility] Automated erythrocyte mean corpuscular hemoglobin concentration measurement (mass/volume) 32.0 31 - 35 06/26/2018 [facility] RDW BldCo-Rto 13.2 11.7 - 14.4 06/26/2018 [facility] Automated blood platelet count (count/volume) 148 140 - 360 06/26/2018 [facility] Automated blood segmented neutrophil count as percentage of total leukocytes 90.5 38.7 - 80.0 06/26/2018 [facility] Automated blood lymphocyte count as percentage ot total leukocytes 5.3 18.0 - 39.1 06/26/2018 [facility] Automated blood monocyte count as percentage of total leukocytes 3.4 4.4 - 11.3 06/26/2018 [facility] Automated blood eosinophil count as percentage of total leukocytes 0.0 0.0 - 6.0 06/26/2018 [facility] Automated blood basophil count as percentage of total leukocytes 0.1 0.0 - 1.0 06/26/2018 [facility] IM GRANULOCYTES % 0.7 0.0 - 1.0 06/26/2018 [facility] Automated blood neutrophil count 9.1 2.1 - 6.9 06/26/2018 [facility] Blood lymphocytes count (number/volume) 0.5 1.0 - 3.2 06/26/2018 [facility] Blood monocytes automated count (number/volume) 0.3 0.2 - 0.8 06/26/2018 [facility] Automated blood eosinophil count 0.0 0.0 - 0.4 06/26/2018 [facility] Automated blood basophil count (count/volume) 0.0 0.0 - 0.1 06/26/2018 [facility] Absolute Immature Granulocyte (auto 0.07 0 - 0.1 06/26/2018 [facility] Prothrombin time (PT) in platelet poor plasma by coagulation assay 12.6 11.9 - 14.5 06/26/2018 [facility] INR in Platelet poor plasma by Coagulation assay 0.87 06/26/2018 [facility] Serum or plasma sodium measurement (moles/volume) 132 136 - 145 06/26/2018 [facility] Serum or plasma potassium measurement (moles/volume) 5.5 3.5 - 5.1 06/26/2018 [facility] Serum or plasma chloride measurement (moles/volume) 96 98 - 107 06/26/2018 [facility] Serum or plasma carbon dioxide, total measurement (moles/volume) 23 22 - 29 06/26/2018 [facility] Serum or plasma anion gap 18.5 8 - 16 06/26/2018 [facility] Serum or plasma urea nitrogen measurement (mass/volume) 67 7 - 26 06/26/2018 [facility] Serum or plasma creatinine measurement (mass/volume) 3.89 0.57 - 1.11 06/26/2018 [facility] Serum or plasma urea nitrogen/creatinine mass ratio 17 6 - 25 06/26/2018 [facility] Estimated glomerular filtration rate (GFR) determination 11 60 06/26/2018 [facility] Glucose measurement 128 74 - 118 06/26/2018 [facility] Serum or plasma calcium measurement (mass/volume) 8.5 8.4 - 10.2 06/26/2018 [facility] Differential Total Cells Counted 100 06/25/2018 [facility] Manual blood neutrophils/100 leukocytes 94 40 - 74 06/25/2018 [facility] Manual blood band neutrophils form/100 leukocytes 2 06/25/2018 [facility] Manual blood lymphocytes/100 leukocytes 2 19 - 48 06/25/2018 [facility] Manual blood monocytes/100 leukocytes 2 3.4 - 9.0 06/25/2018 [facility] Blood platelets count by estimate (number/volume) ADEQUATE 06/25/2018 [facility] Platelet morphology NORMAL 06/25/2018 [facility] RBC morphology NORMAL 06/25/2018 [facility] Serum or plasma creatine kinase measurement (enzymatic activity/volume) 52 29 - 168 06/24/2018 [facility] Serum or plasma creatine kinase MB measurement (mass/volume) 3.00 0 - 5.0 06/24/2018 [facility] Troponin I measurement by highly sensitive enzyme immunoassay < 0.088 0 - 0.300 06/24/2018 [facility] Qualitative serum or plasma hepatitis B virus e antibody by enzyme immunoassay Negative Negative 06/23/2018 [facility] Serum or plasma hepatitis B virus surface antigen detection by immunoassay Negative 06/23/2018 [facility] Serum or plasma hepatitis B virus core IgM antibody detection by immunoassay Negative 06/23/2018 [facility] Urine color determination YELLOW YELLOW 06/23/2018 [facility] Urine clarity CLEAR CLEAR 06/23/2018 [facility] Specific gravity of Urine by Test strip 1.010 1.010 - 1.025 06/23/2018 [facility] Urine pH measurement by automated test strip 7 5 - 7 06/23/2018 [facility] Urine leukocyte esterase detection by dipstick NEGATIVE NEGATIVE 06/23/2018 [facility] Urine nitrite detection NEGATIVE NEGATIVE 06/23/2018 [facility] Urine protein measurement by test strip (mass/volume) NEGATIVE NEGATIVE 06/23/2018 [facility] Urine glucose detection NEGATIVE NEGATIVE 06/23/2018 [facility] Urine ketones detection by automated test strip NEGATIVE NEGATIVE 06/23/2018 [facility] Urine urobilinogen measurement by test strip (mass/volume) 0.2 0.2 - 1 06/23/2018 [facility] Urine total bilirubin measurement (mass/volume) NEGATIVE NEGATIVE 06/23/2018 [facility] Urine erythrocytes detection TRACE NEGATIVE 06/23/2018 [facility] Automated urine sediment leukocyte count by microscopy (number/high power field) NONE 0 - 5 06/23/2018 [facility] Erythrocytes detection in urine sediment by light microscopy 6-10 0 - 5 06/23/2018 [facility] Bacteria detection in urine sediment by light microscopy RARE NONE 06/23/2018 [facility] Epithelial cells detection in urine sediment by light microscopy RARE NONE 06/23/2018 [facility] Activated partial thromboplastin time (aPTT) in platelet poor plasma bycoagulation assay 38.5 23.8 - 35.5 06/23/2018 [facility] Influenza virus A and B antigen identification by immunofluorescence NEGATIVE NEGATIVE 06/23/2018 [facility] Lactic Acid Level 11.6 4.5 - 19.8 06/23/2018 [facility] Serum or plasma magnesium measurement (mass/volume) 2.1 1.3 - 2.1 06/23/2018 [facility] Serum or plasma total bilirubin measurement (mass/volume) 0.6 0.2 - 1.2 06/23/2018 [facility] Aspartate Amino Transf (AST/SGOT) 17 5 - 34 06/23/2018 [facility] Serum or plasma alanine aminotransferase measurement (enzymatic activity/volume) 9 0 - 55 06/23/2018 [facility] Serum or plasma protein measurement (mass/volume) 7.0 6.5 - 8.1 06/23/2018 [facility] Serum or plasma albumin measurement (mass/volume) 3.4 3.5 - 5.0 06/23/2018 [facility] Plasma globulin measurement (mass/volume) 3.6 2.3 - 3.5 06/23/2018 [facility] Serum or plasma albumin/globulin mass ratio 0.9 0.8 - 2.0 06/23/2018 [facility] Serum or plasma alkaline phosphatase measurement (enzymatic activity/volume) 175 40 - 150 06/23/2018 [facility] BNP Bld-mCnc 220.3 0 - 100 06/23/2018 [facility] Blood culture NO GROWTH AFTER 72 HOURS 06/23/2018 [facility] Capillary blood glucose measurement by glucometer (mass/volume) 119 70 - 120 02/15/2018 [facility] Bacteria identification in sputum by respiratory culture Organism: ANSON ALBICANS 02/15/2018 [facility] Serum hepatitis B virus surface antibody assay by radioimmunoassay (units/volume) <3.1 Immunity>9.9 02/14/2018 [facility] Serum or plasma hepatitis B virus core antibody detection by immunoassay Negative Negative 02/14/2018 [facility] Arterial blood pH measurement 7.35 7.31 - 7.41 02/13/2018 [facility] pCO2 BldA 47 41 - 51 02/13/2018 [facility] pCO2 BldA 117 80 - 105 02/13/2018 [facility] Arterial blood bicarbonate measurement (moles/volume) 26 23 - 28 02/13/2018 [facility] Arterial blood base excess by calculation 1.0 -2 - 3 - 2 02/13/2018 [facility] Arterial blood oxygen saturation measurement 98.0 95 - 98 02/13/2018 [facility] FiO2 32 02/13/2018 [facility] Bacterial blood culture Organism: STAPHYLOCOCCUS SP COAG NEG 02/13/2018 [facility] Pathology Reports No Data Provided for This [...] greater detail on the MRI study. SL: [id number] 09/23/2016 [facility] Consultation Notes No Data Provided for This Section Discharge Summaries No Data Provided for This Section History and Physicals No Data Provided for This Section Vital Signs No Data Provided for This Section Encounters Location Location Details Encounter Type Encounter Number Reason For Visit Attending Provider ADM Date DC Date Status Source Outpatient [id number] [facility] 08/31/2016 Active [facility] Outpatient [id number] [facility] 09/14/2016 [facility] Outpatient [id number] [facility] 09/23/2016 09/24/2016 [facility] Discharged Inpatient [id number] TODD SANTIAGO MD 02/13/2018 02/15/2018 [facility] Departed Emergency Room [id number] RENÉE BARBA MD 05/04/2018 05/04/2018 [facility] Discharged Inpatient (obs) [id number] TODD SANTIAGO MD 06/23/2018 06/26/2018 [facility] Procedures Procedure Code Date Perfomer Comments Source X-ray of chest, two views [id number] 06/23/2018 CACACE [facility] Computed tomography of brain without radiopaque contrast [id number] 05/04/2018 NUR [facility] Computed tomography of cervical spine without contrast [id number] 05/04/2018 BOOM [facility] PERFORMANCE OF URINARY FILTRATION, <6 HRS/DAY [id number] 02/13/2018 PERRY [facility] Excision of gallbladder [id number] [facility] Knee joint operation [id number] [facility] Assessment and Plan No Data Provided for This Section Plan of Care Plan of Care Date Source Discharge Date 06/26/18 5:10pm Disposition HOME, SELF-CARE Instructions/Education Provided COPD Prescriptions See Medication Section Additional Instructions/Education RENAL DIET FOLLOW UP WITH PRIMARY IN 7-10 DAYS 06/26/2018 [facility] Social History Social History Date Source Social [...] Stop Date Current every day smoker 06/26/2018 [facility] Social History TypeResponse Alcohol Current, Type Liquor. Frequency: 1-2 times per year. Smoking Status Current every day smoker; Type: Cigarettes; Exposure to Tobacco Smoke Unable to obtain; Cigarette Smoking Last 365 Days Yes; Reg Smoking Cessation Counseling No 09/14/2016 [facility] Family History Value Date Source Relationship Condition [...] diabetes mellitus Not Recorded 03/22/2015 11:28pm 06/26/2018 [facility] Advance Directives Order Name Results Value Date Source Advance Directives Advance Directives Directive Response Recorded Date/Time Does the patient have an advance directive? Yes 06/23/18 5:32pm If yes, is advance directive on file with [facility]? No 06/23/18 5:32pm If not on file with [facility] will patient provide a copy? Yes 06/23/18 5:32pm Do you have a Directive to Physician? Yes 06/23/18 2:04pm Do you have a Medical Power of Delivery Stock Clerk? Yes 06/23/18 2:04pm Do you have an [...] rights and responsibilities? Yes 06/23/18 2:05pm 06/26/2018 [facility] Functional Status No Data Provided for This Section
[2019-04-01 00:50] LABS: BASOPHILS # (AUTO) 0.1 (0.0-0.1); BASOPHILS % 0.7 % (0.0-1.0); EOSINOPHILS # (AUTO) 0.3 (0.0-0.4); EOSINOPHILS % 4.9 % (0.0-6.0); HEMATOCRIT 31.3 % (34.2-44.1); HEMOGLOBIN 10.4 g/dL (12.0-16.0); LYMPHOCYTES # (AUTO) 1.1 (1.0-3.2); LYMPHOCYTES % 16.2 % (18.0-39.1); MEAN CORPUSCULAR HEMOGLOBIN 31.4 pg (28-32); MEAN CORPUSCULAR HGB CONC 33.2 g/dL (31-35); MEAN CORPUSCULAR VOLUME 94.6 fL (81-99); MONOCYTES # (AUTO) 0.5 (0.2-0.8); MONOCYTES % 7.6 % (4.4-11.3); NEUTROPHILS # (AUTO) 4.7 (2.1-6.9); NEUTROPHILS % 70.3 % (38.7-80.0); PLATELET COUNT 259 x10e3/uL (140-360); RED BLOOD COUNT 3.31 x10e6/uL (3.6-5.1); RED CELL DISTRIBUTION WIDTH 13.7 % (11.7-14.4)
[2019-04-01 01:12] LABS: ALBUMIN/GLOBULIN RATIO 0.7 (0.8-2.0); ANION GAP 16.4 mmol/L (8-16); CALCIUM 9.9 mg/dL (8.4-10.2); CREATININE, SERUM 2.94 mg/dL (0.57-1.11); POTASSIUM 3.4 mmol/L (3.5-5.1)
--- NOTE | 2019-04-01 01:33 | NUR ---
ASSISTANT MECHANIC NOTIFIED AND AWARE TO CALL FOR VENOUS DOPPLER.
--- NOTE | 2019-04-01 04:00 | NUR ---
PT TAKEN TO RESTROOM IN WHEELCHAIR; PT PLACED BACK IN BED; SIDE RAILS UP X2, CALL LIGHT IN REACH, BED LOW AND LOCKED, PT PLACED ON FULL MONITORING; PT WITH NO COMPLAINTS AT THIS TIME;
[2019-04-01] MEDS ORDERED: SODIUM CHLORIDE 0.9% 1000ML 1,000 ML IV SCH (05:06)
[2019-04-01] MEDS ORDERED: VANCOMYCIN 1GM/NS 250 ML 250 ML IV STA (05:06)
[2019-04-01] MEDS ORDERED: RIVAROXABAN 20 MG TABLET PO STA (05:06)
--- OUTSIDE RECORDS SUMMARY | 2019-04-01 05:33 | XMS REPORT | Clinical Summary ---
Author Author [facility] Address Unknown Phone Unavailable Care Team Providers Care Activities Assistant Name Role Phone PCP Unavailable Allergies Comments [...] Lot Implanted Type Area Manufactur er 12/31/2017 [id number] / [id number] / [id number] Grft Taurus Mrtrstm 1000mg [id number] - Tissue Left: Leg [employer] [id number] Graft/Subs Implanted: Qty: 1 on 04/12/2016 by Sreekanth De La O MD 12/31/2017 [id number] / [id number] / [id number] Grft Taurus Mrtrstm 1000mg [id number] - Tissue Left: Leg [employer] [id number] Graft/Subs Implanted: Qty: 1 on 04/12/2016 by Sreekanth De La O MD 10/01/2017 [id number] / [id number] / [id number] Drsng Matristem Meshed [id number] Tissue Left: Leg [employer] [id number] - [id number] Graft/Subs Implanted: Qty: 1 on 04/12/2016 by Sreekanth De La O MD Results Not on fileafter 03/31/2018 Insurance Payer Benefit Subscriber ID Type Phone Address Plan / Group MEDICARE MEDICARE A xxxxxxxxxx Medicare B [facility] [place] xxxxxxxxx LTAC, [facility] Advance Directives For more information, please contact: [facility] [address] [place] [address] Date Inactivated Comments Code Status Date Activated 04/13/2016 7:49 PM Full Code 04/03/2016 12:26 PM This code status was determined by: Patient 04/03/2016 12:26 PM Full Code 04/03/2016 12:34 AM This code status was determined by: Patient
--- OUTSIDE RECORDS SUMMARY | 2019-04-01 05:33 | XMS REPORT | Continuity of Care Document ---
Author Author [employer] Organization [employer] Address Unknown Phone Unavailable Care Team Providers Care Wire Puller Name Role Phone [facility] Unavailable Unavailable Problems Problem Status Onset Date Classification Date Reported Comments Source WEDGE COMPRESSION FRACTURE LUMBAR VERTEB Active 09/17/2016 [facility] Bronchitis Active 06/28/2015 Problem 06/27/[address] [facility] CHF (congestive heart failure) Active 06/28/2015 Problem 06/27/[address] [facility] Obstructive chronic bronchitis with exacerbation Active 06/28/2015 Problem 06/27/[address] [facility] Pneumonia Active 03/21/2015 Problem 06/27/[address] [facility] Altered mental status Active 03/23/2014 Problem 06/27/[address] [facility] End stage renal failure on dialysis Active 03/23/2014 Problem 06/27/[address] [facility] Fever Active 03/23/2014 Problem 06/27/[address] [facility] Chronic headache disorder (disorder) Resolved Problem 09/26/2016 [facility] Obesity (disorder) Active Problem 09/26/2016 [facility] Chronic obstructive pulmonary disease with acute lower respiratory infection Active Problem 06/27/[address] [facility] Pulmonary edema Active Problem 06/27/[address] [facility] Acute on chronic respiratory failure Active Problem 06/27/[address] [facility] WEDGE COMPRESSION FRACTURE OF UNSP LUMBA Active [facility] Medications Medication Details Route Status Patient Instructions Ordering Provider Order Date Source Gabapentin 300 Mg Capsule, 600 Mg Oral Three Times A Day Active 06/24/[address] [facility] Meclizine Hcl 12.5 Mg Tablet, 25 Mg Oral Every 6 Hours Active 02/14/[address] [facility] Ondansetron (Zofran Odt) 4 Mg Tab.rapdis, 8 Mg Oral Every 8 Hours Active 02/14/[address] [facility] Sevelamer Hcl (Renvela) 800 Mg Tab, 1600 Mg Oral W/Snacks Active 02/14/[address] [facility] Escitalopram Oxalate (Lexapro) 10 Mg Tablet, 10 Mg Oral Daily Active 02/13/[address] [facility] Hydrocodone Bit/Acetaminophen ([place] 5-325 Tablet) 1 Each Tablet, 1 Each Oral As Needed Active 02/13/[address] [facility] Nystatin 1 Each Powder.ea., 1 Topically Three Times A Day Active 02/13/[address] [facility] Clindamycin Hcl 150 Mg Capsule, 900 Mg Intraven Every 8 Hours Active 07/14/[address] [facility] Darbepoetin Bartolo In Polysorbat (Aranesp) 60 Mcg/1 Ml Vial, 60 Mcg Subcutaneously Active 07/14/[address] [facility] Docusate Sodium 100 Mg Capsule, 100 Mg Oral Every 12 Hours Active 07/14/[address] [facility] Folic Acid/Vitamin B Comp W-C (Holly-Joshua Tablet) 0.8 Mg Tablet, 1 Tab Oral Daily Active 07/14/[address] [facility] Morphine Sulfate/Pf (Morphine Sulfate 1 Mg/Ml Vial) 30 Mg/30 Ml Floral Specialist.vial, 1 Mg Iv Push As Needed Active 07/14/[address] [facility] Ondansetron Hcl 2 Mg/1 Ml Vial, 4 Mg Intraven As Needed Active 07/14/[address] [facility] Aspirin (Aspir 81) 81 Mg Tablet.dr, 81 Mg Oral Daily Active 01/03/[address] [facility] Breo , Inhalation As Needed Active 01/03/[address] [facility] Buspirone Hcl 15 Mg Tablet, 15 Mg Oral Twice A Day Active 01/03/[address] [facility] Citalopram Hydrobromide (Citalopram Hbr) 20 Mg Tablet, 20 Mg Oral Daily Active 01/03/[address] [facility] Citalopram Hydrobromide (Celexa) 20 Mg Tablet, 20 Mg Oral Daily Active 01/03/[address] [facility] Clindamycin Hcl (Cleocin Hcl) 150 Mg Capsule, 300 Mg Oral Three Times A Day Active 01/03/[address] [facility] Cyclobenzaprine Hcl (Flexeril) 5 Mg Tablet, 1 Mg Oral Twice A Day Active 01/03/[address] [facility] Ethyl Chloride 103.5 Ml Rowan, 3XWK Active 01/03/[address] [facility] Furosemide 80 Mg Tablet, 80 Mg Oral Twice A Day Active 01/03/[address] [facility] Ibuprofen/Diphenhydramine (Advil Pm Caplet) 1 Each Tablet, 2 Tab Oral Bedtime Active 01/03/[address] [facility] Methadone Hcl (Dolophine Hcl) 5 Mg Tablet, 10 Mg Oral Twice A Day Active 01/03/[address] [facility] Metolazone 5 Mg Tablet, 5 Mg Oral Daily Active 01/03/[address] [facility] Metoprolol Tartrate 50 Mg Tablet, 50 Mg Oral Twice A Day Active 01/03/[address] [facility] Sevelamer Hcl (Renvela) 800 Mg Tab, 2400 Mg Oral Three Times Daily With Meals Active 01/03/[address] [facility] Tramadol Hcl (Ultram) 50 Mg Tablet, 50 Mg Oral As Needed Active 01/03/[address] [facility] Sevelamer Hcl (Renvela) 800 Mg Tab, 800 Mg Oral Daily Active 11/22/[address] [facility] Amlodipine Besylate (Norvasc) 10 Mg Tab, 10 Mg Oral Daily Active 06/29/[address] [facility] Tramadol Hcl (Ultram) 50 Mg Tablet, 50 Mg Oral As Needed Active 06/29/[address] [facility] Buspirone Hcl 5 Mg Tablet, 5 Mg Oral Twice A Day Active 02/24/[address] [facility] Furosemide 20 Mg Tablet, 40 Mg Oral Twice A Day Active 02/24/[address] [facility] Albuterol/Ipratropium (Duoneb 0.5 Mg-3 Mg/3 Ml Soln) 3 Ml Inha, 3 Ml Inhalation Every 6 Hours Active 03/21/[address] [facility] Buspirone Hcl 15 Mg Tablet, 15 Mg Oral Twice A Day Active 03/21/[address] [facility] Diltiazem Hcl (Dilt-Cd) 120 Mg Cap.er.24h, 120 Mg Oral Daily Active 03/21/[address] [facility] Metoclopramide Hcl (Reglan) 10 Mg Tablet, 10 Mg Oral As Needed Active 03/21/[address] [facility] Omeprazole (Prilosec) 20 Mg Capsule.dr, 40 Mg Oral Daily Active 03/21/[address] [facility] Pravastatin Sodium (Pravachol) 20 Mg Tablet, 20 Mg Oral Daily Active 03/21/[address] [facility] Acetaminophen 325 Mg Supp.rect, 325 Mg Rectal Every 4 Hours Active 08/04/[address] [facility] Acetaminophen 325 Mg Tablet, 2 Tab Oral Q4hrs Active 08/04/[address] [facility] Alprazolam (Xanax) 0.25 Mg Tablet, 0.25 Mg Oral Four Times Daily Active 08/04/[address] [facility] Alprazolam 0.25 Mg Tablet, 0.25 Mg Oral Four Times Daily Active 08/04/[address] [facility] Alprazolam 1 Mg Tablet, 1 Tab Oral Every 8 Hours Active 08/04/[address] [facility] Diphenhydramine Hcl (Benadryl) 25 Mg Capsule, 25 Mg Oral Q8hrs Active 08/04/[address] [facility] Duloxetine Hcl (Cymbalta) 20 Mg Capcr, 20 Mg Oral Daily Active 08/04/[address] [facility] Furosemide 20 Mg Tablet, 20 Mg Oral Twice A Day Active 08/04/[address] [facility] Gabapentin 100 Mg Capsule, 300 Mg Oral Twice A Day Active 08/04/[address] [facility] Hydralazine Hcl 10 Mg Tablet, 10 Mg Oral Every 6 Hours While Awake Active 08/04/[address] [facility] Hydrochlorothiazide (Microzide) 12.5 Mg Capsule, 25 Mg Oral Daily Active 08/04/[address] [facility] Imipramine Hcl (Tofranil) 25 Mg Tablet, 125 Mg Oral Bedtime Active 08/04/[address] [facility] Imipramine Pamoate 125 Mg Capsule, 125 Mg Oral Qhs Active 08/04/[address] [facility] Methadone Hcl 10 Mg Tablet, 10 Tab Oral Three Times A Day Active 08/04/[address] [facility] Methylphenidate Hcl (Methylin) 5 Mg Tab.chew, 5 Mg Oral Twice A Day Active 08/04/[address] [facility] Nystatin 100,000 Unit/1 Ml Oral.susp, Active 08/04/[address] [facility] Paroxetine Hcl (Paxil) 40 Mg Tablet, 40 Mg Oral Daily Active 08/04/[address] [facility] Phenytoin 125 Mg/5 Ml Oral.susp, 500 Mg Oral Twice A Day Active 08/04/[address] [facility] Piperacillin Sodium/Tazobactam (Piperacil-Tazo 2.25 Gm Add Vl) 2.25 Gm Vial.port, Active 08/04/[address] [facility] Potassium Chloride 8 Meq Capsule.er, 1 Tab Oral Rt Daily Active 08/04/[address] [facility] Pravastatin Sodium (Pravachol) 40 Mg Tablet, 40 Mg Oral Bedtime Active 08/04/[address] [facility] Simvastatin 20 Mg Tablet, 20 Mg Oral Qhs Active 08/04/[address] [facility] Tramadol Hcl (Ultram 50MG*) 50 Mg Tab, 50 Mg Oral Q6prn Active 08/04/[address] [facility] Vancomycin Hcl 1 Gm Vial, 1 Gm Intraven Every 12 Hours Active 08/04/[address] [facility] Ziprasidone (Geodon) 20 Mg Powd, 10 Mg Intramusc Q8prn Active 08/04/[address] [facility] Zolpidem Tartrate (Ambien Cr) 12.5 Mg Tab.mphase, 12.5 Mg Oral Qhs Prn Active 08/04/[address] [facility] Zolpidem Tartrate (Zolpidem Tartrate Er) 12.5 Mg Tab.mphase, Active 08/04/[address] [facility] Hydrocodone Bit/Acetaminophen (Vicodin Es Tablet) 1 Each Tablet, 10 Mg Oral As Needed Active 03/06/[address] [facility] Imipramine Hcl (Tofranil) 50 Mg Tablet, 50 Mg Oral Qhs Active 12/22/[address] [facility] Acetaminophen 650 Mg Tablet As Needed Active [facility] Albuterol Sulfate 0.63 Mg/3 Ml Vial.neb As Needed Active [facility] Alprazolam (Xanax) 0.5 Mg Tablet Three Times A Day Active [facility] Aspirin (Aspir 81) 81 Mg Tablet. Daily Active [facility] Buspirone Hcl 5 Mg Tablet Twice A Day Active [facility] Calcium Carbonate/Vitamin D3 (Os-Kem 500+D Tablet) 1 Each Tablet Three Times A Day Active [facility] Citalopram Hydrobromide (Citalopram Hbr) 20 Mg Tablet Daily Active [facility] Cyclobenzaprine Hcl (Flexeril) 5 Mg Tablet Three Times A Day Active [facility] Furosemide 40 Mg Tablet Twice A Day Active [facility] Gabapentin 100 Mg Capsule Three Times A Day Active [facility] Hydroxyzine Hcl 25 Mg Tablet Every 8 Hours as needed for Itching Active [facility] Lamotrigine 100 Mg Tablet Twice A Day Active [facility] Levofloxacin (Levaquin) 500 Mg Tablet Daily Active [facility] Methadone Hcl 10 Mg Tablet Twice A Day Active [facility] Metoprolol Tartrate 50 Mg Tablet Twice A Day Active [facility] Ondansetron Hcl (Zofran*) 4 Mg Tablet Every 4 Hours as needed for Nausea Active [facility] Pantoprazole Sodium (Protonix) 40 Mg Tablet.dr Daily Active [facility] Prednisone 20 Mg Tab Twice A Day Active [facility] Sertraline Hcl 50 Mg Tablet Bedtime Active [facility] Sevelamer Hcl (Renagel) 800 Mg Tablet Three Times Daily With Meals Active [facility] Tramadol Hcl (Ultram) 50 Mg Tablet Three Times A Day as needed for Pain Active [facility] Allergies, Adverse Reactions, Alerts Substance Category Reaction Severity Reaction type Status Date Reported Comments Source Codeine FACIAL/TONGUE SWELLING Severe Allergy to Substance Active 06/23/[address] [facility] Adhesive Tape Assertion Tears skin <not entered> Drug allergy Active [facility] codeine Assertion 35 years ago it made my lips swell, itching <not entered> Drug allergy Active [facility] Immunizations No Data Provided for This Section Results Order Name Results Value Reference Range Date Interpretation Comments Source Blood leukocytes automated count (number/volume) 10.06 4.8 - 10.8 06/26/[address] [facility] Blood erythrocytes automated count (number/volume) 3.51 3.6 - 5.1 06/26/[address] [facility] Blood hemoglobin measurement (moles/volume) 10.9 12.0 - 16.0 06/26/[address] [facility] Automated blood hematocrit (volume fraction) 34.1 34.2 - 44.1 06/26/[address] [facility] Automated erythrocyte mean corpuscular volume 97.2 81 - 99 06/26/[address] [facility] Automated erythrocyte mean corpuscular hemoglobin (mass per erythrocyte) 31.1 28 - 32 06/26/[address] [facility] Automated erythrocyte mean corpuscular hemoglobin concentration measurement (mass/volume) 32.0 31 - 35 06/26/[address] [facility] RDW BldCo-Rto 13.2 11.7 - 14.4 06/26/[address] [facility] Automated blood platelet count (count/volume) 148 140 - 360 06/26/[address] [facility] Automated blood segmented neutrophil count as percentage of total leukocytes 90.5 38.7 - 80.0 06/26/[address] [facility] Automated blood lymphocyte count as percentage ot total leukocytes 5.3 18.0 - 39.1 06/26/[address] [facility] Automated blood monocyte count as percentage of total leukocytes 3.4 4.4 - 11.3 06/26/[address] [facility] Automated blood eosinophil count as percentage of total leukocytes 0.0 0.0 - 6.0 06/26/[address] [facility] Automated blood basophil count as percentage of total leukocytes 0.1 0.0 - 1.0 06/26/[address] [facility] IM GRANULOCYTES % 0.7 0.0 - 1.0 06/26/[address] [facility] Automated blood neutrophil count 9.1 2.1 - 6.9 06/26/[address] [facility] Blood lymphocytes count (number/volume) 0.5 1.0 - 3.2 06/26/[address] [facility] Blood monocytes automated count (number/volume) 0.3 0.2 - 0.8 06/26/[address] [facility] Automated blood eosinophil count 0.0 0.0 - 0.4 06/26/[address] [facility] Automated blood basophil count (count/volume) 0.0 0.0 - 0.1 06/26/[address] [facility] Absolute Immature Granulocyte (auto 0.07 0 - 0.1 06/26/[address] [facility] Prothrombin time (PT) in platelet poor plasma by coagulation assay 12.6 11.9 - 14.5 06/26/[address] [facility] INR in Platelet poor plasma by Coagulation assay 0.87 06/26/[address] [facility] Serum or plasma sodium measurement (moles/volume) 132 136 - 145 06/26/[address] [facility] Serum or plasma potassium measurement (moles/volume) 5.5 3.5 - 5.1 06/26/[address] [facility] Serum or plasma chloride measurement (moles/volume) 96 98 - 107 06/26/[address] [facility] Serum or plasma carbon dioxide, total measurement (moles/volume) 23 22 - 29 06/26/[address] [facility] Serum or plasma anion gap 18.5 8 - 16 06/26/[address] [facility] Serum or plasma urea nitrogen measurement (mass/volume) 67 7 - 26 06/26/[address] [facility] Serum or plasma creatinine measurement (mass/volume) 3.89 0.57 - 1.11 06/26/[address] [facility] Serum or plasma urea nitrogen/creatinine mass ratio 17 6 - 25 06/26/[address] [facility] Estimated glomerular filtration rate (GFR) determination 11 60 06/26/[address] [facility] Glucose measurement 128 74 - 118 06/26/[address] [facility] Serum or plasma calcium measurement (mass/volume) 8.5 8.4 - 10.2 06/26/[address] [facility] Differential Total Cells Counted 100 06/25/[address] [facility] Manual blood neutrophils/100 leukocytes 94 40 - 74 06/25/[address] [facility] Manual blood band neutrophils form/100 leukocytes 2 06/25/[address] [facility] Manual blood lymphocytes/100 leukocytes 2 19 - 48 06/25/[address] [facility] Manual blood monocytes/100 leukocytes 2 3.4 - 9.0 06/25/[address] [facility] Blood platelets count by estimate (number/volume) ADEQUATE 06/25/[address] [facility] Platelet morphology NORMAL 06/25/[address] [facility] RBC morphology NORMAL 06/25/[address] [facility] Serum or plasma creatine kinase measurement (enzymatic activity/volume) 52 29 - 168 06/24/[address] [facility] Serum or plasma creatine kinase MB measurement (mass/volume) 3.00 0 - 5.0 06/24/[address] [facility] Troponin I measurement by highly sensitive enzyme immunoassay < 0.088 0 - 0.300 06/24/[address] [facility] Qualitative serum or plasma hepatitis B virus e antibody by enzyme immunoassay Negative Negative 06/23/[address] [facility] Serum or plasma hepatitis B virus surface antigen detection by immunoassay Negative 06/23/[address] [facility] Serum or plasma hepatitis B virus core IgM antibody detection by immunoassay Negative 06/23/[address] [facility] Urine color determination YELLOW YELLOW 06/23/[address] [facility] Urine clarity CLEAR CLEAR 06/23/[address] [facility] Specific gravity of Urine by Test strip 1.010 1.010 - 1.025 06/23/[address] [facility] Urine pH measurement by automated test strip 7 5 - 7 06/23/[address] [facility] Urine leukocyte esterase detection by dipstick NEGATIVE NEGATIVE 06/23/[address] [facility] Urine nitrite detection NEGATIVE NEGATIVE 06/23/[address] [facility] Urine protein measurement by test strip (mass/volume) NEGATIVE NEGATIVE 06/23/[address] [facility] Urine glucose detection NEGATIVE NEGATIVE 06/23/[address] [facility] Urine ketones detection by automated test strip NEGATIVE NEGATIVE 06/23/[address] [facility] Urine urobilinogen measurement by test strip (mass/volume) 0.2 0.2 - 1 06/23/[address] [facility] Urine total bilirubin measurement (mass/volume) NEGATIVE NEGATIVE 06/23/[address] [facility] Urine erythrocytes detection TRACE NEGATIVE 06/23/[address] [facility] Automated urine sediment leukocyte count by microscopy (number/high power field) NONE 0 - 5 06/23/[address] [facility] Erythrocytes detection in urine sediment by light microscopy 6-10 0 - 5 06/23/[address] [facility] Bacteria detection in urine sediment by light microscopy RARE NONE 06/23/[address] [facility] Epithelial cells detection in urine sediment by light microscopy RARE NONE 06/23/[address] [facility] Activated partial thromboplastin time (aPTT) in platelet poor plasma bycoagulation assay 38.5 23.8 - 35.5 06/23/[address] [facility] Influenza virus A and B antigen identification by immunofluorescence NEGATIVE NEGATIVE 06/23/[address] [facility] Lactic Acid Level 11.6 4.5 - 19.8 06/23/[address] [facility] Serum or plasma magnesium measurement (mass/volume) 2.1 1.3 - 2.1 06/23/[address] [facility] Serum or plasma total bilirubin measurement (mass/volume) 0.6 0.2 - 1.2 06/23/[address] [facility] Aspartate Amino Transf (AST/SGOT) 17 5 - 34 06/23/[address] [facility] Serum or plasma alanine aminotransferase measurement (enzymatic activity/volume) 9 0 - 55 06/23/[address] [facility] Serum or plasma protein measurement (mass/volume) 7.0 6.5 - 8.1 06/23/[address] [facility] Serum or plasma albumin measurement (mass/volume) 3.4 3.5 - 5.0 06/23/[address] [facility] Plasma globulin measurement (mass/volume) 3.6 2.3 - 3.5 06/23/[address] [facility] Serum or plasma albumin/globulin mass ratio 0.9 0.8 - 2.0 06/23/[address] [facility] Serum or plasma alkaline phosphatase measurement (enzymatic activity/volume) 175 40 - 150 06/23/[address] [facility] BNP Bld-mCnc 220.3 0 - 100 06/23/[address] [facility] Blood culture NO GROWTH AFTER 72 HOURS 06/23/[address] [facility] Capillary blood glucose measurement by glucometer (mass/volume) 119 70 - 120 02/15/[address] [facility] Bacteria identification in sputum by respiratory culture Organism: ANSON ALBICANS 02/15/[address] [facility] Serum hepatitis B virus surface antibody assay by radioimmunoassay (units/volume) <3.1 Immunity>9.9 02/14/[address] [facility] Serum or plasma hepatitis B virus core antibody detection by immunoassay Negative Negative 02/14/[address] [facility] Arterial blood pH measurement 7.35 7.31 - 7.41 02/13/[address] [facility] pCO2 BldA 47 41 - 51 02/13/[address] [facility] pCO2 BldA 117 80 - 105 02/13/[address] [facility] Arterial blood bicarbonate measurement (moles/volume) 26 23 - 28 02/13/[address] [facility] Arterial blood base excess by calculation 1.0 -2 - 3 - 2 02/13/[address] [facility] Arterial blood oxygen saturation measurement 98.0 95 - 98 02/13/[address] [facility] FiO2 32 02/13/[address] [facility] Bacterial blood culture Organism: STAPHYLOCOCCUS SP COAG NEG 02/13/[address] [facility] Pathology Reports No Data Provided for This [...] greater detail on the MRI study. SL: [id number] 09/23/2016 [facility] Consultation Notes No Data Provided for This Section Discharge Summaries No Data Provided for This Section History and Physicals No Data Provided for This Section Vital Signs No Data Provided for This Section Encounters Location Location Details Encounter Type Encounter Number Reason For Visit Attending Provider ADM Date DC Date Status Source Outpatient [id number] [facility] 08/31/2016 Active [facility] Outpatient [id number] [facility] 09/14/2016 [facility] Outpatient [id number] [facility] 09/23/2016 09/24/2016 [facility] Discharged Inpatient [id number] TODD SANTIAGO MD 02/13/2018 02/15/[address] [facility] Departed Emergency Room [id number] RENÉE BARBA MD 05/04/2018 05/04/[address] [facility] Discharged Inpatient (obs) [id number] TODD SANTIAGO MD 06/23/2018 06/26/[address] [facility] Procedures Procedure Code Date Perfomer Comments Source X-ray of chest, two views [id number] 06/23/[address] [facility] Computed tomography of brain without radiopaque contrast [id number] 05/04/[address] [facility] Computed tomography of cervical spine without contrast [id number] 05/04/[address] [facility] PERFORMANCE OF URINARY FILTRATION, <6 HRS/DAY [id number] 02/13/[address] [facility] Excision of gallbladder [id number] [facility] Knee joint operation [id number] [facility] Assessment and Plan No Data Provided for This Section Plan of Care Plan of Care Date Source Discharge Date 06/26/18 5:10pm Disposition HOME, SELF-CARE Instructions/Education Provided COPD Prescriptions See Medication Section Additional Instructions/Education RENAL DIET FOLLOW UP WITH PRIMARY IN 7-10 DAYS 06/26/[address] [facility] Social History Social History Date Source Social [...] Stop Date Current every day smoker 06/26/[address] [facility] Social History TypeResponse Alcohol Current, Type Liquor. Frequency: 1-2 times per year. Smoking Status Current every day smoker; Type: Cigarettes; Exposure to Tobacco Smoke Unable to obtain; Cigarette Smoking Last 365 Days Yes; Reg Smoking Cessation Counseling No 09/14/2016 [facility] Family History Value Date Source Relationship [...] diabetes mellitus Not Recorded 03/22/2015 11:28pm 06/26/[address] [facility] Advance Directives Order Name Results Value Date Source Advance Directives Advance Directives Directive Response Recorded Date/Time Does the patient have an advance directive? Yes 06/23/18 5:32pm If yes, is advance directive on file with [facility]? No 06/23/18 5:32pm If not on file with [facility] will patient provide a copy? Yes 06/23/18 5:32pm Do you have a Directive to Physician? Yes 06/23/18 2:04pm Do you have a Medical Power of Dolphin Trainer? Yes 06/23/18 2:04pm Do you have an [...] rights and responsibilities? Yes 06/23/18 2:05pm 06/26/[address] [facility] Functional Status No Data Provided for This Section
--- NOTE | 2019-04-01 05:35 | NUR ---
PT WAS FOUND ON FLOOR AFTER UNWITNESSED FALL - FALL WAS HEARD BY NURSE; PT STATES SHE WAS TRYING TO GET OUT OF THE BED FOR HELP; PT HAD CALL LIGHT ATTACHED TO BED, AND INSTRUCTED TO USE FOR HELP; PT'S DOOR WAS ALSO OPEN FOR DIRECT VISUALIZATION; PT HAD SIDE RAILS RAISED X2, WITH BED LOW AND LOCKED; PT WITH BRUISING NOTED TO L FACE AND ABOVE L EYE; PT C/O PAIN TO L SHOULDER AND L RIBS; PT WITH NO LOC, AAOX4, NEURO VITALS CHECKED AND PLACED IN CHART; ER MD AT BEDSIDE EVALUATING PT; PT TAKEN FOR STAT CT BRAIN AND RADIOLOGY STUDIES.
--- NOTE | 2019-04-01 05:50 | NUR ---
AOS NOTIFIED OF PT FALL
--- NOTE | 2019-04-01 06:00 | NUR ---
JUDITH ISLAS NOTIFIED DR SANTIAGO OF PT FALL
--- NOTE | 2019-04-01 06:41 | Diagnostic Imaging Report ---
Examination: CT head without contrast Clinical Indication: Head injury after fall. Technique: Transaxial noncontrast images from the skull base through the vertex were obtained. Sagittal and coronal reformatted images were done. Dose modulation, iterative reconstruction, and/or weight based adjustment of the mA/kV was utilized to reduce the radiation dose to as low as reasonably achievable. Comparison: 05/04/[address] Findings: Scalp: No abnormalities. Bones: Intact. No fractures. No blastic or lytic lesions. Brain sulci: Appropriate for patient's age. Ventricles: Normal in size and configuration. No hydrocephalus. . Extra-axial space: No abnormalities. Parenchyma: Again demonstrated are mild confluent areas of hypoattenuation in the periventricular and subcortical and pontine white matter, nonspecific. No masses, hemorrhage, or acute or chronic cortical based vascular insults. Suprasellar region: No abnormalities. Craniocervical junction: The foramen magnum is patent. No Chiari one malformation. Incidental findings: Atherosclerotic calcification of the cavernous and supraclinoid internal carotid arteries. Newly opacified left maxillary sinus. Impression: 1. No new acute intracranial finding when compared to prior head CT dated 05/04/2018. 2. Unchanged mild chronic microvascular ischemic change. 3. Newly opacified left maxillary sinus. Signed by: Dr. Letty Lozano M.D. on 04/01/2019 6:38 AM
--- NOTE | 2019-04-01 07:17 | NUR ---
PT BACK FROM CT - PT ORIENTED TO NEW ROOM, GIVEN CALL LIGHT, SIDE RAILS UP X2, INSTRUCTED TO NOT GET OUT OF BED;
--- NOTE | 2019-04-01 07:30 | NUR ---
PT DAUGHTER CALLED AND SPOKE WITH HER SON, WHO IS NEXT OF KIN AFTER PT FALL;
--- NOTE | 2019-04-01 07:30 | Diagnostic Imaging Report ---
LEFT SHOULDER - 2 Image(s) HISTORY: DVT, status post fall COMPARISON: Chest radiograph June 24, 2018 FINDINGS: Sensitivity limited by portable technique. Soft tissue attenuation further limits sensitivity of the exam. Diffusely decreased mineralization of the osseous structures further limits bone detail. Bones: An oblique fracture of the mid clavicle with greater than one shaft width displacement and overlap. No aggressive osseous lesion. Joints: Mild hypertrophic degenerative changes of the acromioclavicular joint. Soft tissues: The soft tissues appear unremarkable. IMPRESSION: Acute, displaced midclavicular fracture. When feasible, recommend routine clavicle x-ray series performed in the Radiology Department to better characterize the fracture. Signed by: Dr. Jus Ross D.O., M.M.M. on 04/01/2019 7:27 AM
--- NOTE | 2019-04-01 07:43 | Diagnostic Imaging Report ---
A single frontal view of the chest. HISTORY: Fall, DVT COMPARISON: Chest radiograph June 24, 2018 DISCUSSION: Portable technique, limits sensitivity of the exam. Soft tissue attenuation partially limits sensitivity of the exam. Tubes/Lines: None Lungs and pleura: Stable calcification projecting at the periphery of the right lung base. Prominent interstitial lung markings. No evidence of a consolidative pneumonia or pulmonary alveolar edema. No definite pleural effusion or pneumothorax is identified. Heart and mediastinum: The cardiac silhouette and pulmonary vasculature appear(s) mildly enlarged. Bones and soft tissues: Diffusely decreased mineralization of the osseous structures limits bone detail. The suspected left clavicle fracture is not seen. IMPRESSION: 1. Cardiomegaly, central pulmonary vascular congestion, and mild interstitial edema. 2. The suspected left clavicle fracture is not well seen on this limited evaluation. As before, when feasible, recommend routine clavicle x-ray series performed in the Radiology Department to better evaluate the left clavicle. 3. Diffuse osseous demineralization. Signed by: Dr. Jus Ross D.O., M.M.M. on 04/01/2019 7:39 AM
--- NOTE | 2019-04-01 07:57 | NUR ---
PT LEFT SHOULDER PLACED IN SHOULDER IMMOBILIZER PER MD ORDER
--- NOTE | 2019-04-01 08:07 | NUR ---
PT IN BED LOW AND LOCKED WITH BOTH SIDE RAILS UP AND CALL LIGHT IN REACH; PT EDUCATED TO CALL DON'T FALL; PT STATES SHE UNDERSTANDS
--- NOTE | 2019-04-01 08:08 | NUR ---
PT A&O X 3 ANSWERS ALL QUESTIONS APPROPRIATELY
--- NOTE | 2019-04-01 08:12 | NUR ---
Recvd patient from ER. AAOx3, ON Immobilizer left arm, on direct mail marketer , not in any distress, bed alarm ON, Keep monitoring
[2019-04-01 09:20] VITALS: BP 116/62
--- NOTE | 2019-04-01 09:21 | NUR ---
Notified Dr Smith regarding Shoulder Xray result, he said he will consult Ortho Tomorrow not today, also recvd new order for breathing treatment and consultation with Dr Scott for ESRD
[2019-04-01] MEDS ORDERED: HYDROXYZINE HCL 25 MG TAB PO PRN (09:45)
[2019-04-01] MEDS: RIVAROXABAN 20 MG TABLET PO SCH (09:45)
[2019-04-01] MEDS: LAMOTRIGINE 100 MG TAB PO SCH ×2 (10:37→20:36)
[2019-04-01] MEDS: CITALOPRAM HYDROBROMIDE 20 MG TAB PO SCH (10:37)
--- NOTE | 2019-04-01 11:11 | NUR ---
PATIENT OFF THE UNIT FOR VQ SCAN, STABLE, ASSISTED HER TO USE BED SIDE COMMODE, DR HAYS ( FOR Dr Scott) HAD ROUNDS, d/c d IV fluids
[2019-04-01] MEDS: ALBUTEROL SULF 0.083% NEB SOLN 3 ML NEB NEB SCH ×3 (11:44→19:10)
--- NOTE | 2019-04-01 12:15 | Diagnostic Imaging Report ---
Ventilation/perfusion lung scan Clinical Information: 69 F on hemodialysis with history of COPD. Presents with right leg DVT. Comparison: Chest radiograph 04/01/2019 Discussion: Xenon-133 gas 14 mCi was administered via inhalation. Dynamic images of the lungs in the posterior projection were obtained through single breath, equilibrium, and washout phases. Diffusely decreased tracer activity is seen throughout the left lung compared to the right lung. Distribution of tracer activity is irregular throughout the lungs. There are no segmental ventilatory defects. Washout of tracer is diffusely delayed with no air trapping. Perfusion images of the lungs were obtained in multiple projections following intravenous administration of approximately 6 mCi of Tc-99m MAA. Tracer is diffusely decreased in the left lung compared to the right. Distribution of tracer is irregular throughout the lungs. The contours of the lungs are well demarcated. There are no segmental perfusion defects of any size. The cardiomediastinal silhouette is enlarged. Impression: 1. Scan findings represent a VERY LOW probability for acute pulmonary embolic disease based on the PIOPED II criteria. 2. Scan evidence of obstructive lung disease, more severe in the left lung compared to right. 3. Enlarged cardiac silhouette. Signed by: Dr. Scarlet Bansal M.D. on 04/01/2019 12:12 PM
[2019-04-01 12:20] VITALS: BP 118/65
[2019-04-01] MEDS: MORPHINE SULFATE INJ 4 MG/ML INJ 1ML IV PRN ×2 (12:28→22:42)
[2019-04-01] MEDS: SEVELAMER CARBONATE 800 MG TAB PO SCH ×2 (12:28→17:06)
[2019-04-01] MEDS: PANTOPRAZOLE SOD 40 MG TABEC PO SCH (12:28)
--- NOTE | 2019-04-01 15:26 | NUR ---
spoke to Mrs Ortez ([phone]) Alex, regarding dialysis on TTS
[2019-04-01] MEDS: BUSPIRONE HCL 5 MG TAB PO SCH (17:06)
[2019-04-01] MEDS: FUROSEMIDE 40 MG TAB PO SCH (17:06)
[2019-04-01] MEDS: GABAPENTIN 100 MG CAP PO SCH ×2 (17:06→20:36)
[2019-04-01] MEDS: METOPROLOL TARTRATE 50 MG TAB PO SCH (17:06)
--- NOTE | 2019-04-01 17:42 | Consultation ---
DATE OF CONSULTATION: REQUESTING PHYSICIAN: Jeffrey Smith MD REASON FOR CONSULTATION: ESRD management. HISTORY OF PRESENT ILLNESS: Thanks for allowing us to participate in Ms. Astudillo. This is a 69-year-old female, who came in with worsening right leg swelling, found to have a DVT. No new bleeding problems. Continues to smoke. Also, being treated for cellulitis. During this time, she also fell, apparently now have a left midclavicular fracture. Further x-rays are pending. She is in a sling, has some pain, some fatigue on exam. PAST HISTORY: ESRD, history of fluid overload, presumed COPD, chronic nicotine dependence, anxiety, prior history of hematoma of the leg, history of hypoalbuminemia, hypertension in the past, intermittent hyperkalemia. MEDICATIONS: Lamotrigine 50 mg p.o. b.i.d., Celexa 20 mg p.o. daily, Xarelto 20 mg a day, Renvela 3200 mg with each meal, Lasix 80 b.i.d., hydroxyzine p.r.n., morphine p.r.n., methadone 10 mg p.o. q.12 hours, pantoprazole 40 mg a day. SOCIAL HISTORY: Continues to smoke. FAMILY HISTORY: Hypertension. REVIEW OF SYSTEMS: MUSCULOSKELETAL: Left shoulder area pain. RESPIRATORY: No new dyspnea. CARDIAC: Denies syncope or palpitation at this time. VASCULAR: Leg swelling on the right side. GI: No nausea, vomiting. NEURO: Feels tired. Rest of review is negative. PHYSICAL EXAMINATION: GENERAL: Appears frail, lying in bed. No definite distress. VITAL SIGNS: Afebrile. Pulse 56, irregular. Blood pressure 118/59. CHEST: Clear. Diminished breath sounds bilaterally. No wheezes are heard. CARDIAC: Normal heart tones. Rhythm sounds regular. EXTREMITIES: 1+ edema on the right with redness. Left side, trace without any redness. ABDOMEN: Benign. NEURO: Appears to be alert. Speech is normal. Moving all four limbs. LABORATORY DATA: Hemoglobin 10.4, potassium 3.4, CO2 of 30, creatinine 2.94, BUN 15, albumin 3. ASSESSMENT: 1. End-stage renal disease. 2. History of hypertension. 3. Congestive heart failure. 4. Volume status seems reasonable at this time, although she does have minimal congestion on the x-ray. 5. Hypoalbuminemia. 6. Anemia of chronic kidney disease with adequate hemoglobin. PLAN: From renal standpoint, keep dialysis scheduled Tuesday, , Tuesday and make sure she has no trouble breathing tomorrow keep fluid restricted, discontinue the IV fluids. Add protein supplements. We will follow along. MD ARMAAN Barros/CARLOS /[id number]
--- NOTE | 2019-04-01 17:54 | NUR ---
patient up in bed eating dinner, not in any distress or SOB
--- NOTE | 2019-04-01 18:50 | NUR ---
Bedside report received from Pancho Travis RN. Care plan reviewed with pt. Pt reports no pain or discomfort at this time. No signs of distress noted. Bed alarm turned on, bed in lowest and locked position, call light in pts right hand and pt instructed to call for assistance before attempted to leave bed.
[2019-04-01 19:00] VITALS: BP 95/43
[2019-04-01 20:00] VITALS: BP 95/43
[2019-04-01] MEDS: METHADONE HCL 10 MG TAB PO SCH ×2 (20:36→20:37)
[2019-04-01] MEDS: SERTRALINE HCL 50 MG TAB PO SCH (20:36)
[2019-04-01 23:00] VITALS: BP 121/72
[2019-04-02] VITALS (7 sets, daily range): BP systolic 102–129; BP diastolic 50–56
[2019-04-02] MEDS: ALBUTEROL SULF 0.083% NEB SOLN 3 ML NEB NEB SCH ×4 (00:10→19:47)
[2019-04-02 05:19] LABS: BASOPHILS # (AUTO) 0.1 (0.0-0.1); BASOPHILS % 0.8 % (0.0-1.0); EOSINOPHILS # (AUTO) 0.2 (0.0-0.4); EOSINOPHILS % 3.7 % (0.0-6.0); LYMPHOCYTES # (AUTO) 0.8 (1.0-3.2); LYMPHOCYTES % 13.4 % (18.0-39.1); MEAN CORPUSCULAR HEMOGLOBIN 30.7 pg (28-32); MEAN CORPUSCULAR HGB CONC 31.8 g/dL (31-35); MEAN CORPUSCULAR VOLUME 96.6 fL (81-99); MONOCYTES # (AUTO) 0.5 (0.2-0.8); MONOCYTES % 8.1 % (4.4-11.3); NEUTROPHILS # (AUTO) 4.3 (2.1-6.9); NEUTROPHILS % 73.5 % (38.7-80.0); RED CELL DISTRIBUTION WIDTH 13.9 % (11.7-14.4)
[2019-04-02 05:27] LABS: HEMOGLOBIN 8.9 g/dL (12.0-16.0); PLATELET COUNT 187 x10e3/uL (140-360)
[2019-04-02 05:43] LABS: ALBUMIN 2.7 g/dL (3.5-5.0); ALBUMIN/GLOBULIN RATIO 0.8 (0.8-2.0); ANION GAP 15.4 mmol/L (8-16); CALCIUM 8.8 mg/dL (8.4-10.2); CREATININE, SERUM 3.5 mg/dL (0.57-1.11); POTASSIUM 3.4 mmol/L (3.5-5.1)
--- NOTE | 2019-04-02 05:46 | NUR ---
Dr. Smith just rounded and assessed the pt.
[2019-04-02] MEDS: ONDANSETRON HCL INJ 2MG/ML 2ML 2 MG/ML VIAL IV PRN (07:57)
[2019-04-02] MEDS: GABAPENTIN 100 MG CAP PO SCH ×3 (09:27→20:48)
[2019-04-02] MEDS: BUSPIRONE HCL 5 MG TAB PO SCH ×2 (09:27→17:15)
[2019-04-02] MEDS: ASPIRIN 81 MG CHEW TAB PO SCH (09:27)
[2019-04-02] MEDS: PANTOPRAZOLE SOD 40 MG TABEC PO SCH (09:27)
[2019-04-02] MEDS: RIVAROXABAN 20 MG TABLET PO SCH (09:27)
[2019-04-02] MEDS: CITALOPRAM HYDROBROMIDE 20 MG TAB PO SCH (09:27)
[2019-04-02] MEDS: SEVELAMER CARBONATE 800 MG TAB PO SCH ×3 (09:27→17:15)
[2019-04-02] MEDS: LAMOTRIGINE 100 MG TAB PO SCH ×2 (09:27→20:48)
[2019-04-02] MEDS: FUROSEMIDE 40 MG TAB PO SCH ×2 (09:27→17:00)
[2019-04-02] MEDS: METOPROLOL TARTRATE 50 MG TAB PO SCH ×2 (09:27→17:00)
[2019-04-02] MEDS: METHADONE HCL 10 MG TAB PO SCH ×2 (09:28→20:48)
--- NOTE | 2019-04-02 13:15 | NUR ---
patient arrived to unit via hospital bed, alert and oriented. call becerril within reach, bed in lowest, locked position.
--- NOTE | 2019-04-02 18:18 | NUR ---
Nutrition Intervention Note RD Recommendation(s) for Physician: -Recommend renal diet as medically appropriate -Rec Nepro BID to increase protein-calorie intake Plan of Care: RD following, monitoring for tolerance and adequacy, ONS rec Nutrition reason for involvement: Nutrition Risk Score - MST 2 RD Assessment 04/02 - 69 year old female, who was admitted with DVT. Pt stated her appetite has been fair. SEAT MENDER, she has been eating 50% less than usual for over a month. PCT documented 100% of breakfast and 50% of lunch intake today. Pt also mentioned her weight fluctuates due to dialysis and typically weighs between 154-156 lbs - not suspecting weight loss at this time. Pt reports occasional nausea. Pt reports she was previously seen by speech therapist and does not require any diet modifications. Pt was interested in Nepro 2x/day, which has been ordered by MD. Will continue to monitor and follow. Principal Problems/Diagnoses: DVT PMH: ESRD, history of fluid overload, presumed COPD, chronic nicotine dependence, anxiety, prior history of hematoma of the leg, history of hypoalbuminemia, hypertension in the past, intermittent hyperkalemia. I/O:+ 960mL/ -350mL GI: abdomen, soft, non-tender, + flatus Skin: intact Labs: (04/02) K 3.4, Creat 3.50 Meds: (04/02) Renvela, protonix, Lopressor, Lasix, Zofran Ht: 67 inches Wt: 173 lbs (weight upon admission 04/01) BMI: 27.1 kg/m2 IBW: 135 lbs +/- 10% Malnutrition Evaluation (04/02/2019) The patient does not meet criteria for a specified degree of malnutrition at this time. Will re-evaluate at follow-up as appropriate. Energy intake: <50% of estimated energy intake for over 1 month Weight loss: Weight fluctuates with dialysis stable Fat loss: moderate tricep region Muscle loss: No loss identified Supporting Evidence: Fluid accumulation: +1 edema right lower extremity Functional Status: unable to evaluate Nutrition Prescription (Diet Order): Cardiac Diet Estimated Nutritional Needs: Calories: 2359 2752 kcal/day (30-35 g/kg) Weight used: 173 lbs Protein: 94 -118 g/day (1.2-1.5 g/kg) Weight used: 173 lbs Diet Adequacy: Unable to determine Tolerance: Tolerating PO Diet Education Needs Assessment: Diet education indicated, but patient declined. Nutrition Care Level: low Nutrition Diagnosis: No nutrition diagnosis at this time. Goal: Patient will meet 75-100% of estimated needs by follow up Progress: Progressing Interventions: -Mineral-modified diet, Commercial beverage Monitoring/Evaluation: -Total energy intake, Total protein intake, Modified diet, Liquid supplement, Weight change Signed: Aspen Mendenhall, MS, RD, LD
--- NOTE | 2019-04-02 20:19 | Consultation ---
DATE OF CONSULTATION: 04/02/2019 CHIEF COMPLAINT: Left shoulder pain. HISTORY OF PRESENT ILLNESS: The patient is a 69-year-old lady, who apparently has been at the [facility] for the past 2 weeks. She has a history of having had a blood clot. She is not a great historian, but it sounds like she was transferred over to the emergency room late yesterday for further evaluation and treatment. While she was in the emergency room, she got up and fell. She noted the immediate onset of pain in her left shoulder. X-rays were taken and she was noted to have a fracture of her left clavicle. She was placed into a splint. She was admitted for medical concerns, but Orthopedic consultation was requested. PAST MEDICAL HISTORY: Multiple medical problems including COPD, hypertension, end-stage renal disease on dialysis. PREVIOUS SURGERIES: The patient can recall a cholecystectomy and a right hip fracture. She cannot recall much else. MEDICATIONS: Extensive number of medicines. Please see list on medication reconciliation form. ALLERGIES: CODEINE. SOCIAL HISTORY: She lives in [place] with her son and [id number]. She walks with a walker at all times. She has COPD, but continues to smoke a half a pack of cigarettes a day. She does not drink alcohol. PHYSICAL EXAMINATION: GENERAL: She is a medically frail 69-year-old lady, who appears older than her chronologic age. EXTREMITIES: She has multiple ecchymotic areas in her upper extremities. She has some left periorbital ecchymosis. She is in a sling. Her left clavicle is tender to palpation around the midshaft. We did not test shoulder range of motion. Distal neurovascular exam is normal. She has diminished muscle definition in both upper extremities. DIAGNOSTIC DATA: X-rays were reviewed. Details are obscured with under penetration, but there is evidence of an oblique midshaft clavicle fracture on the left clavicle. IMPRESSION: Left clavicle fracture. This is superimposed on multiple significant medical concerns. She has renal osteodystrophy and chronic obstructive pulmonary disease. She continues to smoke. She is not a surgical candidate nor would we really need to perform surgery. This can be treated with a sling and modification of activities for the next 6 weeks. I have explained this to the patient. She states she had an another clavicle fracture before that healed without surgery. I have encouraged her to avoid excessive overhead activity and to use the sling for comfort. She was instructed to return to my office for a clinic appointment and x-ray in a month. Thank you for the consultation. Rajan Magallanes MD DR/CARLOS /[id number]
[2019-04-02] MEDS: SERTRALINE HCL 50 MG TAB PO SCH (20:48)
[2019-04-02] MEDS: MORPHINE SULFATE INJ 4 MG/ML INJ 1ML IV PRN (20:48)
[2019-04-03] MEDS: ALBUTEROL SULF 0.083% NEB SOLN 3 ML NEB NEB SCH ×4 (00:55→19:40)
[2019-04-03 04:00] VITALS: BP 112/53
[2019-04-03 05:20] LABS: BASOPHILS % 0.3 % (0.0-1.0); EOSINOPHILS # (AUTO) 0.2 (0.0-0.4); EOSINOPHILS % 3.3 % (0.0-6.0); HEMOGLOBIN 8.8 g/dL (12.0-16.0); LYMPHOCYTES # (AUTO) 0.8 (1.0-3.2); LYMPHOCYTES % 12.9 % (18.0-39.1); MEAN CORPUSCULAR HEMOGLOBIN 30.9 pg (28-32); MEAN CORPUSCULAR HGB CONC 31.4 g/dL (31-35); MEAN CORPUSCULAR VOLUME 98.2 fL (81-99); MONOCYTES # (AUTO) 0.4 (0.2-0.8); MONOCYTES % 7.2 % (4.4-11.3); NEUTROPHILS # (AUTO) 4.7 (2.1-6.9); PLATELET COUNT 178 x10e3/uL (140-360); RED BLOOD COUNT 2.85 x10e6/uL (3.6-5.1)
[2019-04-03 05:46] LABS: ALBUMIN 2.7 g/dL (3.5-5.0); ALBUMIN/GLOBULIN RATIO 0.8 (0.8-2.0); ANION GAP 15.7 mmol/L (8-16); CALCIUM 8.5 mg/dL (8.4-10.2); CREATININE, SERUM 4.12 mg/dL (0.57-1.11); POTASSIUM 3.7 mmol/L (3.5-5.1)
[2019-04-03 08:00] VITALS: BP 120/55
[2019-04-03 08:30] VITALS: BP 120/55
[2019-04-03] MEDS: RIVAROXABAN 20 MG TABLET PO SCH (08:30)
[2019-04-03] MEDS: PANTOPRAZOLE SOD 40 MG TABEC PO SCH (08:30)
[2019-04-03] MEDS: ASPIRIN 81 MG CHEW TAB PO SCH (08:30)
[2019-04-03] MEDS: LAMOTRIGINE 100 MG TAB PO SCH ×2 (08:30→22:15)
[2019-04-03] MEDS: CITALOPRAM HYDROBROMIDE 20 MG TAB PO SCH (08:30)
[2019-04-03] MEDS: BUSPIRONE HCL 5 MG TAB PO SCH ×2 (08:30→17:20)
[2019-04-03] MEDS: GABAPENTIN 100 MG CAP PO SCH ×3 (08:30→22:15)
[2019-04-03] MEDS: SEVELAMER CARBONATE 800 MG TAB PO SCH ×3 (08:30→17:20)
[2019-04-03] MEDS: MORPHINE SULFATE INJ 4 MG/ML INJ 1ML IV PRN (08:42)
[2019-04-03] MEDS: ONDANSETRON HCL INJ 2MG/ML 2ML 2 MG/ML VIAL IV PRN ×2 (08:42→18:11)
[2019-04-03] MEDS: METOPROLOL TARTRATE 50 MG TAB PO SCH ×2 (09:00→17:20)
[2019-04-03] MEDS: FUROSEMIDE 40 MG TAB PO SCH ×2 (09:00→17:20)
[2019-04-03] MEDS: METHADONE HCL 10 MG TAB PO SCH ×3 (09:00→22:15)
[2019-04-03] MEDS: ALPRAZOLAM 0.5 MG TAB PO SCH ×3 (09:30→22:15)
[2019-04-03 12:00] VITALS: BP 114/52
--- NOTE | 2019-04-03 13:02 | NUR ---
[facility] FACILITY DISCHARGE INFORMATION PATIENT HAS BEEN ACCEPTED TO: NAME: [facility] ADDRESS: [id number] [id number] ACCEPTING MD: DALE ROOM: 204 NURSE CALL REPORT TO: [phone]
--- NOTE | 2019-04-03 13:39 | Progress Note ---
DATE: Nephrology Progress Note SUBJECTIVE: Seen on dialysis, tolerating procedure. Chest x-ray was showing fluid overload. PHYSICAL EXAMINATION: GENERAL: Lying in bed, no distress. Left arm in sling. VITAL SIGNS: Temperature 97.6, pulse 60, and blood pressure 120/55. CHEST: Showing diminished breath sounds. No wheezes are heard. EXTREMITIES: Trace edema on the left, 1+ on the right. LABORATORY DATA: Hemoglobin 10.4, K is 3.7, creatinine is 4.12. ASSESSMENT: 1. End-stage renal disease. 2. History of hypertension. 3. Fluid overload. 4. Hyponatremia. PLAN: Hemodialysis today, I tried to remove 2 to 3 L on a 3 potassium bath to keep up with protein intake. Please see my orders for further details. Steve Maya MD VKK/MODL /[id number]
--- NOTE | 2019-04-03 15:15 | NUR ---
Visit made by the Spiritual Care Department Pastoral Visitor, Katelyn Thomas. Pt sleeping soundly and no family present. Pastoral Visitor left a card describing availability of tin roofer and instructions on how to contact a tin roofer. ASHUTOSH ROMERO Teaching Aide Spiritual Care Department O: [phone] Pager: [phone] ([phone] number calling from)
[2019-04-03 16:00] VITALS: BP 146/64
--- NOTE | 2019-04-03 19:22 | NUR ---
Report received and walking rounds complete. Pt resting in bed and in no apparent distress. Pt states she isn't feeling well and would like to rest. All safety measures ensured and pt call becerril near, bed alarm on. Pt encouraged to use call becerril for assistance.
[2019-04-03 20:00] VITALS: BP 105/54
[2019-04-03] MEDS: SERTRALINE HCL 50 MG TAB PO SCH (22:15)
[2019-04-04] VITALS: BP 111/59
[2019-04-04] MEDS: ALBUTEROL SULF 0.083% NEB SOLN 3 ML NEB NEB SCH ×2 (00:50→07:22)
[2019-04-04 04:00] VITALS: BP 110/53
[2019-04-04] MEDS: MORPHINE SULFATE INJ 4 MG/ML INJ 1ML IV PRN (04:07)
--- NOTE | 2019-04-04 07:25 | NUR ---
Walking rounds complete and report given to day shift RN
[2019-04-04 08:11] VITALS: BP 141/71
[2019-04-04] MEDS: ASPIRIN 81 MG CHEW TAB PO SCH (09:02)
[2019-04-04] MEDS: PANTOPRAZOLE SOD 40 MG TABEC PO SCH (09:02)
[2019-04-04] MEDS: BUSPIRONE HCL 5 MG TAB PO SCH (09:02)
[2019-04-04] MEDS: LAMOTRIGINE 100 MG TAB PO SCH (09:02)
[2019-04-04] MEDS: SEVELAMER CARBONATE 800 MG TAB PO SCH (09:02)
[2019-04-04] MEDS: FUROSEMIDE 40 MG TAB PO SCH (09:02)
[2019-04-04] MEDS: CITALOPRAM HYDROBROMIDE 20 MG TAB PO SCH (09:02)
[2019-04-04] MEDS: METHADONE HCL 10 MG TAB PO SCH (09:03)
[2019-04-04] MEDS: RIVAROXABAN 20 MG TABLET PO SCH (09:03)
[2019-04-04] MEDS: GABAPENTIN 100 MG CAP PO SCH (09:03)
[2019-04-04] MEDS: ALPRAZOLAM 0.5 MG TAB PO SCH (09:03)
--- NOTE | 2019-04-04 11:05 | NUR ---
patient discharged to [facility] , report called to Shannon (nurse), Patient AA0x3, No distress noted, on arm immobilizer, patient and report taken nurse aware about f/up appointment with Dr Magallanes in a month . EMS here picked patient, IV Canula removed with tip intact, no ss of infiltration noted
== END 2019-04-04 11:08 ==
LOC: ER 23:28 → ERHOLD 04-01 05:28 → IMCU 04-01 08:31 → MED/SURG2 04-02 13:12
PROVIDERS: ADMIT Internal Medicine; ATTEND Internal Medicine
DX: I82.411 Acute embolism and thrombosis of right femoral vein (principal); L03.115 Cellulitis of right lower limb; Z88.5 Allergy status to narcotic agent; J44.9 Chronic obstructive pulmonary disease, unspecified; E11.22 Type 2 diabetes mellitus with diabetic chronic kidney disease; I13.2 Hypertensive heart and chronic kidney disease with heart failure and with stage 5 chronic kidney disease, or end stage renal disease; I50.9 Heart failure, unspecified; N18.6 End stage renal disease; Z99.2 Dependence on renal dialysis; E78.5 Hyperlipidemia, unspecified; Z82.49 Family history of ischemic heart disease and other diseases of the circulatory system; Z72.0 Tobacco use; S42.002A Fracture of unspecified part of left clavicle, initial encounter for closed fracture; W19.XXXA Unspecified fall, initial encounter; Y92.238 Other place in hospital as the place of occurrence of the external cause; E88.09 Other disorders of plasma-protein metabolism, not elsewhere classified; D63.1 Anemia in chronic kidney disease; N25.0 Renal osteodystrophy
CPT/HCPCS: 36415 ×4; 70450; 71045; 73030; 78582; 80053 ×3; 84100; 85025 ×3; 86704; 86706; 86707; 87340; 87350; 90935; 93971; 94640 ×8; 99285; A9540; A9558; G0378 ×4; J2270 ×4; J2405 ×2; S0164 ×4; 90962

== ENCOUNTER → 2019-04-16 | Outpatient (CLI) | payer MEDICARE ==
--- NOTE | 2019-04-16 19:42 | Diagnostic Imaging Report ---
EXAMINATION: Head CT without contrast. HISTORY:Fall. COMPARISON:CT brain from 04/01/2019. TECHNIQUE: Multidetector axial images were obtained from the foramen magnum to the vertex without contrast. The images were reconstructed using brain and bone algorithms. Thin section brain images were reformatted into coronal and sagittal planes. Dose modulation, iterative reconstruction, and/or weight based adjustment of the mA/kV was utilized to reduce the radiation dose to as low as reasonably achievable. Intravenous contrast: None IMAGE QUALITY: Acceptable. FINDINGS: Skull/scalp: No lytic or blastic. lesions. No surgical changes. Parenchyma: Nonspecific bilateral frontoparietal patchy white matter hypodensity are likely related to small vessel ischemic changes. No acute hemorrhage, mass or acute major vascular territorial infarct. Arteries: No density suggestive of thrombosis. Atherosclerotic calcification in bilateral carotid siphon. Dural sinuses: No abnormal density suggestive of thrombosis. Ventricles: No hydrocephalus or displacement. Extra-axial spaces: No abnormal density. Brain volume: Moderate generalized cerebral volume loss. Craniocervical junction: No mass, Chiari malformation, or basilar invagination. Sella: Partial empty sella. Paranasal/mastoid sinuses: Moderate mucosal thickening in left maxillary sinus. IMPRESSION: No acute intracranial abnormality. No change since CT head from 04/01/2019. Chronic findings: 1. Mild supratentorial white matter microvascular ischemic changes. 2. Generalized age-related cerebral volume loss. Signed by: Dr. Irma Torres M.D. on 04/16/2019 7:39 PM
== END ==
LOC: CT 18:14
PROVIDERS: ATTEND Internal Medicine
DX: R51 Headache (principal)
CPT/HCPCS: 70450

== ENCOUNTER 2019-05-03 03:58 | Emergency (ER) | payer MEDICARE ==
[~2019-05-03] VITALS: Ht 170.2 cm; Wt 85.7 kg
--- NOTE | 2019-05-03 05:13 | Diagnostic Imaging Report ---
History:Fell, hit for head, on blood thinners Comparison studies: None Technique: Axial images were obtained through the maxillofacial region. Coronal and sagittal images reconstructed from the axial data. Intravenous contrast: None Dose modulation, iterative reconstruction, and/or weight based adjustment of the mA/kV was utilized to reduce the radiation dose to as low as reasonably achievable. Findings: Soft tissues: Right preseptal and supraorbital soft tissue swelling. Atherosclerotic calcifications carotid bulbs. Bones: No fractures or bone abnormalities. Orbits: Globes: No acute abnormality bilateral cataract surgery changes Extra or intraconal abnormalities: None. Paranasal sinuses: Right maxillary sinus mucosal thickening. The remaining paranasal sinuses are clear. Degenerative changes of the bilateral TMJs. IMPRESSION: 1. Right preseptal and supraorbital soft tissue swelling without underlying fracture. Signed by: DR Nnamdi Voss M.D. on 05/03/2019 5:20 AM
--- NOTE | 2019-05-03 05:18 | Diagnostic Imaging Report ---
History:Fell, hit for head, on blood thinners. Comparison studies:CT head 04/16/2019 Technique: Axial images were obtained from the skull base to the vertex. Coronal and sagittal images reconstructed from the axial data. Intravenous contrast: None Dose modulation, iterative reconstruction, and/or weight based adjustment of the mA/kV was utilized to reduce the radiation dose to as low as reasonably achievable. Findings: Scalp/skull: Right frontal scalp hematoma, without underlying fracture. Extra-axial spaces: No masses. No fluid collections. Brain sulci: Mildly prominent. Ventricles: Mild compensatory dilatation. No hydrocephalus. Parenchyma: Scattered' subtle hypodensities in the supratentorial white matter are small vessel ischemic changes. No masses, hemorrhage, acute or chronic cortical vascular insults. Sellar/suprasellar region: No abnormalities. Craniocervical junction: Patent foramen magnum. No Chiari one malformation. Incidental findings: Atherosclerotic calcifications in the carotid siphons . Right maxillary sinus mucosal thickening. Impression: No acute intracranial abnormalities. Right frontal scalp hematoma without underlying fractures. Chronic findings: 1. Mild generalized volume loss. 2. Mild supratentorial white matter small vessel ischemic changes. Signed by: DR Nnamdi Voss M.D. on 05/03/2019 5:15 AM
--- NOTE | 2019-05-03 06:14 | Diagnostic Imaging Report ---
X-ray left knee 3 views HISTORY: Pain. COMPARISON: None available. FINDINGS: Bones: Loss of volume of the lateral femoral condyle. Slightly depressed lateral tibial plateau. Osseous alignment is within normal limits. Joints: Tricompartment osteophytes, obliteration of the lateral patellofemoral compartment joint space with remodeling. No joint effusion. Soft tissues: Vascular calcifications. IMPRESSION: Degenerative changes in the knee, lateral compartment dominant. Loss of volume of the lateral femoral condyle and slightly depressed lateral tibial plateau, and low bone mineral density, in the absence of joint effusion, raise suspicion for inflammatory arthropathy such as rheumatoid arthritis. An age-indeterminate lateral femoral condylar insufficiency fracture and/or tibial plateau fracture are also considerations. Signed by: Marcelo Hutchinson DO on 05/03/2019 6:10 AM
--- NOTE | 2019-05-03 06:30 | NUR ---
CALLED [facility] FOR TRANSPORT - ETA 30MINS
[2019-05-03 06:52] VITALS: BP 134/38
== END 2019-05-03 07:53 ==
LOC: ER 03:58
DX: S06.0X0A Concussion without loss of consciousness, initial encounter (principal); S01.81XA Laceration without foreign body of other part of head, initial encounter; M06.062 Rheumatoid arthritis without rheumatoid factor, left knee; W18.30XA Fall on same level, unspecified, initial encounter; Y92.89 Other specified places as the place of occurrence of the external cause
CPT/HCPCS: 70450; 70486; 99282